=== PATIENT | female | born 1935 | race Caucasian/White ===

== ENCOUNTER 2017-02-03 20:46 | Inpatient (IN) | payer MEDICARE, BC ==
[2017-02-03] MEDS ORDERED: HYDROmorphone 0.5 MG/0.5 ML Syringe IM ONE (23:33)
--- NOTE | 2017-02-03 23:38 | EDM.PDOC ---
ED HPI GENERAL MEDICAL PROBLEM - General Chief Complaint: Lower Extremity Injury/Pain Stated Complaint: FELL IN PARKING LOT AT [employer] AND INJURED RT HIP Time Seen by Provider: 02/03/17 23:34 Source of Information: Reports: Patient, Family History Limitations: Reports: No Limitations - History of Present Illness INITIAL COMMENTS - FREE TEXT/NARRATIVE: pt arrived with pain in the rt hip and pelvis area after she fell in the [facility] parking lot. Onset: Today Duration: Hour(s): Location: Reports: Lower Extremity, Right Associated Symptoms: Reports: No Other Symptoms Right Leg Pain Score (Numeric/FACES): 9 - Related Data Allergies Allergy/AdvReac Type Severity Reaction Status Date / Time Penicillins Allergy Cannot Verified 02/03/17 23:27 Remember Home Meds: Home Meds ALPRAZolam [Alprazolam] 0.25 mg PO BID PRN 02/03/17 [History] Aspirin [Halfprin] 81 mg PO DAILY 02/03/17 [History] Calcium Carbonate/Vitamin D3 [Calcium 500 + Vit D 400] 1 each PO BID 02/03/17 [ History] Gabapentin [Gabapentin] 100 mg PO BID 02/03/17 [History] Losartan [Cozaar] 50 mg PO DAILY 02/03/17 [History] Pravastatin [Pravachol] 10 mg PO BEDTIME 02/03/17 [History] Triamcinolone Acetonide [Triamcinolone Acetonide 0.1% Crm] 1 applic TOP BID PRN 02/03/17 [History] Polyethylene Glycol 3350 [MiraLAX] 1 scoop PO DAILY 02/04/17 [History] Psyllium with Sucrose [Metamucil] 1 each PO DAILY 02/04/17 [History] Review of Systems - Review of Systems Review Of Systems: See Below Constitutional: Reports: No Symptoms Eyes: Reports: No Symptoms Ears: Reports: No Symptoms Nose: Reports: No Symptoms Mouth/Throat: Reports: No Symptoms Respiratory: Reports: No Symptoms Cardiovascular: Reports: No Symptoms GI/Abdominal: Reports: No Symptoms ED EXAM, GENERAL - Physical Exam Exam: See Below Free Text/Narrative:: pt lost her balance and fell in the parking lot of [facility]. She is having alot of hip pain and pain in the knee area. Exam Limited By: No Limitations General Appearance: Alert, Anxious Ears: Normal TMs Nose: Normal Inspection Throat/Mouth: Normal Inspection Head: Atraumatic Neck: Normal Inspection Respiratory/Chest: No Respiratory Distress Cardiovascular: Regular Rate, Rhythm GI/Abdominal: Soft, Non-Tender Extremities: Other (pain in the rt hip and rt femur. When the hip ismoved she has extreme pain. ) Neurological: Alert, Oriented, Normal Cognition Course - Vital Signs Last Recorded V/S: Last Vital Signs Temp 36.1 C 02/04/17 06:25 Pulse 72 02/04/17 06:25 Resp 16 02/04/17 06:25 BP 117/63 02/04/17 06:25 Pulse Ox 96 02/04/17 06:25 - Orders/Labs/Meds Orders: Active Orders 24 hr Category Date Time Status EKG Documentation Completion [RC] ASDIRECTED Care 02/04/17 03:26 Active Valles Catheter Insertion [Insert Urinary Catheter] [OM. Care 02/04/17 06:00 Ordered PC] Q24H Urinary Catheter Assessment [RC] ASDIRECTED Care 02/04/17 06:23 Active Chest 1V Frontal [CR] Stat Exams 02/04/17 03:25 Taken Femur Min 2V Rt [CR] Stat Exams 02/03/17 23:31 Taken Hip Min 2V or 3V w Pelvis Rt [CR] Stat Exams 02/03/17 23:29 Taken Hip wo Cont Rt [CT] Stat Exams 02/04/17 00:24 Taken Knee 3V Rt [CR] Stat Exams 02/03/17 23:32 Taken EKG 12 Lead [EK] Routine Ther 02/04/17 03:26 Ordered Labs: Laboratory Tests 02/04/17 02/04/17 02/04/17 Range/Units 03:30 03:30 04:05 WBC 13.1 H (4.5-11.0) K/uL RBC 4.71 (3.30-5.50) M/uL Hgb 15.1 H (12.0-15.0) g/dL Hct 44.7 (36.0-48.0) % MCV 95 (80-98) fL MCH 32 H (27-31) pg MCHC 34 (32-36) % Plt Count 179 (150-400) K/uL Neut % (Auto) 80 H (36-66) % Lymph % (Auto) 12 L (24-44) % [place] % (Auto) 7 H (2-6) % Eos % (Auto) 0 L (2-4) % Baso % (Auto) 1 (0-1) % Sodium 138 L (140-148) mmol/L Potassium 3.7 (3.6-5.2) mmol/L Chloride 103 (100-108) mmol/L Carbon Dioxide 25 (21-32) mmol/L Anion Gap 13.7 (5.0-14.0) mmol/L BUN 16 (7-18) mg/dL Creatinine 1.0 (0.6-1.0) mg/dL Est Cr Clr Drug Dosing 38.75 mL/min Estimated GFR (MDRD) 53 L (>60) Glucose 152 H (74-106) mg/dL Calcium 9.0 (8.5-10.1) mg/dL Total Bilirubin 0.5 (0.2-1.0) mg/dL AST 19 (15-37) U/L ALT 17 (12-78) U/L Alkaline Phosphatase 49 (46-116) U/L Total Protein 7.7 (6.4-8.2) g/dL Albumin 3.7 (3.4-5.0) g/dL Globulin 4.0 H (2.3-3.5) g/dL Albumin/Globulin Ratio 0.9 L (1.2-2.2) Urine Color Yellow Urine Appearance Clear Urine pH 9.0 H (4.5-8.0) Ur Specific [place] 1.020 (1.008-1.030) Urine Protein Negative (NEGATIVE) mg/dL Urine Glucose (UA) 50 H (NEGATIVE) mg/dL Urine Ketones 15 H (NEGATIVE) mg/dL Urine Occult Blood Large (NEGATIVE) Urine Nitrite Negative (NEGATIVE) Urine Bilirubin Negative (NEGATIVE) Urine Urobilinogen Normal (NORMAL) mg/dL Ur Leukocyte Esterase Negative (NEGATIVE) Urine RBC 0-5 (0-5) Urine WBC 0-5 (0-5) Ur Epithelial Cells Few Amorphous Sediment Not seen Urine Bacteria Few Urine Mucus Not seen Meds: Medications Discontinued Medications Generic Name Dose Route Start Last Admin Trade Name Freq PRN Reason Stop Dose Admin Hydromorphone HCl 0.5 mg 02/03/17 23:33 02/03/17 23:37 Dilaudid IM 02/03/17 23:34 0.5 mg ONETIME ONE Administration Ondansetron HCl 4 mg 02/04/17 03:22 02/04/17 03:25 Zofran IVPUSH 02/04/17 03:23 4 mg ONETIME ONE Administration Ondansetron HCl 4 mg 02/04/17 04:29 02/04/17 04:34 Zofran IVPUSH 02/04/17 04:30 4 mg ONETIME ONE Administration - Re-Assessments/Exams Free Text/Narrative Re-Assessment/Exam: 02/04/17 03:24 pt was fpond to have a definite fracture of the neck of the rt hip. There is very minimal displacement. She is not having very severe pain. Free Text/Narrative Re-Assessment/Exam: 02/04/17 06:49 Dr Oliva plans to do surgery on the pt at 11 thirty on Sunday. Departure - Departure Time of Disposition: 06:50 Disposition: Admitted As Inpatient 67 Condition: Fair Clinical Impression: Closed right hip fracture - Discharge Information Referrals: PCP,None [Primary Care Provider] - Forms: ED Department Discharge Care Plan Goals: admit to Dr angulo-- Dr Oliva plans o do surgery at 11 tghirty on Sunday. - My Orders Last 24 Hours: My Active Orders 02/03/17 23:29 Hip Min 2V or 3V w Pelvis Rt [CR] Stat 02/03/17 23:31 Femur Min 2V Rt [CR] Stat 02/03/17 23:32 Knee 3V Rt [CR] Stat 02/04/17 00:24 Hip wo Cont Rt [CT] Stat 02/04/17 03:25 Chest 1V Frontal [CR] Stat 02/04/17 03:26 EKG Documentation Completion [RC] ASDIRECTED EKG 12 Lead [EK] Routine 02/04/17 06:00 Valles Catheter Insertion [Insert Urinary Catheter] [OM.PC] Q24H 02/04/17 06:23 Urinary Catheter Assessment [RC] ASDIRECTED - Assessment/Plan Last 24 Hours: My Active Orders 02/03/17 23:29 Hip Min 2V or 3V w Pelvis Rt [CR] Stat 02/03/17 23:31 Femur Min 2V Rt [CR] Stat 02/03/17 23:32 Knee 3V Rt [CR] Stat 02/04/17 00:24 Hip wo Cont Rt [CT] Stat 02/04/17 03:25 Chest 1V Frontal [CR] Stat 02/04/17 03:26 EKG Documentation Completion [RC] ASDIRECTED EKG 12 Lead [EK] Routine 02/04/17 06:00 Valles Catheter Insertion [Insert Urinary Catheter] [OM.PC] Q24H 02/04/17 06:23 Urinary Catheter Assessment [RC] ASDIRECTED
[2017-02-04] MEDS ORDERED: Ondansetron 4 MG/2 ML SDV IVPUSH ONE ×2 (03:22→04:29)
--- NOTE | 2017-02-04 07:59 | PCM.HP ---
H&P History of Present Illness - General Date of Service: 02/04/17 Admit Problem/Dx: Admission Diagnosis/Problem Admission Diagnosis/Problem Fracture of neck of femur Source of Information: Patient, Provider, RN Notes Reviewed History Limitations: Reports: No Limitations - History of Present Illness Initial Comments - Free Text/Narative: Ms. Rogers is an 81-year-old woman who is admitted through the emergency department after experiencing a right hip fracture associated with the fall. She is up in our area visiting from [place] declined stay at a local resort for the next week. She did come out of the grocery store and was in the parking lot when she tripped and fell on her right side. She was brought into the emergency department and x-ray as well as CT scan documents a right hip fracture. SHe is otherwise relatively healthy and reports that she's been feeling well prior to the fall. 15 years ago was diagnosed with cardiomyopathy, she reports that that' s resolved and she remains very active with no significant symptoms of chest pain or shortness of breath. She has had previous surgeries with general anesthesia and denies any complications or family history of complications from general anesthetic. She has no previous history of deep vein thrombosis, pulmonary emboli, or bleeding abnormalities. Right Leg Pain Score (Numeric/FACES): 9 - Related Data Allergies/Adverse Reactions: Allergies Allergy/AdvReac Type Severity Reaction Status Date / Time Penicillins Allergy Cannot Verified 02/03/17 23:27 Remember Home Medications: Home Meds ALPRAZolam [Alprazolam] 0.25 mg PO BID PRN 02/03/17 [History] Aspirin [Halfprin] 81 mg PO DAILY 02/03/17 [History] Calcium Carbonate/Vitamin D3 [Calcium 500 + Vit D 400] 1 each PO BID 02/03/17 [ History] Gabapentin [Gabapentin] 100 mg PO BID 02/03/17 [History] Losartan [Cozaar] 50 mg PO DAILY 02/03/17 [History] Pravastatin [Pravachol] 10 mg PO BEDTIME 02/03/17 [History] Triamcinolone Acetonide [Triamcinolone Acetonide 0.1% Crm] 1 applic TOP BID PRN 02/03/17 [History] Polyethylene Glycol 3350 [MiraLAX] 1 scoop PO DAILY 02/04/17 [History] Psyllium with Sucrose [Metamucil] 1 each PO DAILY 02/04/17 [History] Past Medical History HEENT History: Reports: None Cardiovascular History: Reports: Cardiomyopathy, Hypertension Gastrointestinal History: Reports: None Genitourinary History: Reports: Other (See Below) Other Genitourinary History: pelvic floor disfunction Oncologic (Cancer) History: Reports: Other (See Below) Other Oncologic History: skin Dermatologic History: Reports: Other (See Below) Other Dermatologic History: rash on feet occ. - Infectious Disease History Infectious Disease History: Reports: Chicken Pox, Measles - Past Surgical History Head Surgeries/Procedures: Reports: None HEENT Surgical History: Reports: Tonsillectomy Cardiovascular Surgical History: Reports: None GI Surgical History: Reports: Appendectomy Female Surgical History: Reports: None Oncologic Surgical History: Reports: None Dermatological Surgical History: Reports: None Social & Family History - Family History Family Medical History: Noncontributory - Tobacco Use Smoking Status *Q: Never Smoker Second Hand Smoke Exposure: No - Caffeine Use Caffeine Use: Reports: Coffee H&P Review of Systems - Review of Systems: Review Of Systems: See Below General: Reports: No Symptoms HEENT: Reports: No Symptoms Pulmonary: Reports: No Symptoms Cardiovascular: Reports: No Symptoms Gastrointestinal: Reports: No Symptoms Genitourinary: Reports: No Symptoms Musculoskeletal: Reports: Leg Pain, Joint Pain Skin: Reports: No Symptoms Psychiatric: Reports: No Symptoms Neurological: Reports: No Symptoms Hematologic/Lymphatic: Reports: No Symptoms Immunologic: Reports: No Symptoms Exam - Exam Exam: See Below - Vital Signs Vital Signs: Last Vital Signs Temp 96.9 F 02/04/17 06:25 Pulse 79 02/04/17 07:23 Resp 15 02/04/17 07:23 BP 117/64 02/04/17 07:23 Pulse Ox 96 02/04/17 07:23 Weight: 140 lb - Exam Quality Assessment: Urinary Catheter, DVT Prophylaxis General: Alert, Oriented, Cooperative, Mild Distress HEENT: Conjunctiva Clear, Hearing Intact, Mucosa Moist & [place], Normal Nasal Septum, Posterior Pharynx Clear, Pupils Equal Neck: Supple, Trachea Midline, +2 Carotid Pulse wo Bruit Lungs: Clear to Auscultation, Normal Respiratory Effort Cardiovascular: Regular Rate, Regular Rhythm, Normal S1, Normal S2. No: Systolic Murmur, Diastolic Murmur GI/Abdominal Exam: Normal Bowel Sounds, Soft, Non-Tender, No Distention Extremities: Leg Pain. No: Pedal Edema Skin: Warm, Dry, Intact Neurological: Cranial Nerves Intact, Strength Equal Bilateral, Normal Speech, Normal Tone, Sensation Intact. No: Focal Deficit Neuro Extensive - Mental Status: Alert, Oriented x3, Normal Mood/Affect, Normal Cognition, Memory Intact - Patient Data Lab Results Last 24 hrs: Laboratory Results - last 24 hr 02/04/17 02/04/17 02/04/17 Range/Units 03:30 03:30 04:05 WBC 13.1 H (4.5-11.0) K/uL RBC 4.71 (3.30-5.50) M/uL Hgb 15.1 H (12.0-15.0) g/dL Hct 44.7 (36.0-48.0) % MCV 95 (80-98) fL MCH 32 H (27-31) pg MCHC 34 (32-36) % Plt Count 179 (150-400) K/uL Neut % (Auto) 80 H (36-66) % Lymph % (Auto) 12 L (24-44) % [place] % (Auto) 7 H (2-6) % Eos % (Auto) 0 L (2-4) % Baso % (Auto) 1 (0-1) % Sodium 138 L (140-148) mmol/L Potassium 3.7 (3.6-5.2) mmol/L Chloride 103 (100-108) mmol/L Carbon Dioxide 25 (21-32) mmol/L Anion Gap 13.7 (5.0-14.0) mmol/L BUN 16 (7-18) mg/dL Creatinine 1.0 (0.6-1.0) mg/dL Est Cr Clr Drug Dosing 38.75 mL/min Estimated GFR (MDRD) 53 L (>60) Glucose 152 H (74-106) mg/dL Calcium 9.0 (8.5-10.1) mg/dL Total Bilirubin 0.5 (0.2-1.0) mg/dL AST 19 (15-37) U/L ALT 17 (12-78) U/L Alkaline Phosphatase 49 (46-116) U/L Total Protein 7.7 (6.4-8.2) g/dL Albumin 3.7 (3.4-5.0) g/dL Globulin 4.0 H (2.3-3.5) g/dL Albumin/Globulin Ratio 0.9 L (1.2-2.2) Urine Color Yellow Urine Appearance Clear Urine pH 9.0 H (4.5-8.0) Ur Specific [place] 1.020 (1.008-1.030) Urine Protein Negative (NEGATIVE) mg/dL Urine Glucose (UA) 50 H (NEGATIVE) mg/dL Urine Ketones 15 H (NEGATIVE) mg/dL Urine Occult Blood Large (NEGATIVE) Urine Nitrite Negative (NEGATIVE) Urine Bilirubin Negative (NEGATIVE) Urine Urobilinogen Normal (NORMAL) mg/dL Ur Leukocyte Esterase Negative (NEGATIVE) Urine RBC 0-5 (0-5) Urine WBC 0-5 (0-5) Ur Epithelial Cells Few Amorphous Sediment Not seen Urine Bacteria Few Urine Mucus Not seen Result Diagrams: 02/04/17 03:30 02/04/17 03:30 *Q Meaningful Use (ADM) - VTE *Q VTE Criteria *Q: VTE Pharmacological Contraindications *Q: Patient Scheduled Surgery - VTE Risk Assess *Q Each Risk Factor Represents 1 Point: None Total Score 1 Point Risk Factors: 0 Each Risk Factor Represents 2 Points: None Total Score 2 Point Risk Factors: 0 Each Risk Factor Represents 3 Points: Age 75 Years or Greater Total Score 3 Point Risk Factors: 3 Each Risk Factor Represents 5 Points: Hip, Pelvis or Leg Fracture, Less than 1 month Total Score 5 Point Risk Factors: 5 Venous Thromboembolism Risk Factor Score *Q: 8 - Stroke *Q Stroke Criteria *Q: - AMI *Q AMI Criteria *Q: Problem List Initiated/Reviewed/Updated: Yes Orders Last 24hrs: Active Orders 24 hr Category Date Time Status Patient Status Manage Transfer [TRANSFER] Routine ADT 02/04/17 07:40 Ordered EKG Documentation Completion [RC] ASDIRECTED Care 02/04/17 03:26 Active Valles Catheter Insertion [Insert Urinary Catheter] [OM. Care 02/04/17 06:00 Ordered PC] Q24H Urinary Catheter Assessment [RC] ASDIRECTED Care 02/04/17 06:23 Active Chest 1V Frontal [CR] Stat Exams 02/04/17 03:25 Taken Femur Min 2V Rt [CR] Stat Exams 02/03/17 23:31 Taken Hip Min 2V or 3V w Pelvis Rt [CR] Stat Exams 02/03/17 23:29 Taken Hip wo Cont Rt [CT] Stat Exams 02/04/17 00:24 Taken Knee 3V Rt [CR] Stat Exams 02/03/17 23:32 Taken Resuscitation Status Routine Resus Stat 02/04/17 07:43 Ordered EKG 12 Lead [EK] Routine Ther 02/04/17 03:26 Ordered Assessment/Plan Comment:: ASSESSMENT AND PLAN RIGHT HIP FRACTURE-she was feeling well until she tripped and fell yesterday landing on her right side. X-ray and CT scan confirm fracture of the right hip. -Consult Dr. Myles Oliva when he is available tomorrow -Nothing by mouth after midnight -Cleared for surgery, low risk CHRONIC CONSTIPATION -Continue outpatient medical regimen HYPERTENSION -Continue outpatient medical therapy MAINTENANCE ISSUES -DVT prophylaxis; SCUDs, single dose of Lovenox now -GI prophylaxis; not indicated -Valles catheter; placed because of difficulty with movement pending surgery -Nutrition; regular diet, nothing by mouth after midnight -Nicotine dependence; not required CODE STATUS-FULL CODE ADMISSION STATUS-patient will be admitted to inpatient status, expect at least a 2 night hospital stay for evaluation and management of problems as outlined above. At the time of this admission I do not reasonably expected evaluation and management of this problem will require more than a 96 hour hospital stay. DISPOSITION-anticipate discharge to home after the hospital stay. PRIMARY CARE PROVIDER-patient receives primary care in [facility].
[2017-02-04] MEDS ORDERED: oxyCODONE 5 MG Tab PO PRN (08:43)
[2017-02-04] MEDS ORDERED: Naloxone 0.4 MG/ML SDV IVPUSH PRN (08:43)
[2017-02-04] MEDS ORDERED: Albuterol 0.083% 2.5 MG/3 ML Neb Soln NEB PRN (08:43)
[2017-02-04] MEDS ORDERED: Acetaminophen 325 MG Tab PO PRN (08:43)
[2017-02-04] MEDS ORDERED: Docusate Sodium 100 MG Cap PO PRN (08:43)
[2017-02-04] MEDS ORDERED: Sodium Chloride 0.9% 10 ML Syringe FLUSH PRN (08:43)
[2017-02-04] MEDS ORDERED: Ondansetron 4 MG/2 ML SDV IV PRN (08:43)
[2017-02-04] MEDS ORDERED: ALPRAZolam 0.25 MG Tab PO PRN (08:43)
[2017-02-04] MEDS ORDERED: fentaNYL/Normal Saline 600 MCG/30 ML PCA Vial IV PRN (08:43)
[2017-02-04] MEDS ORDERED: Magnesium Hydroxide 400 MG/5 ML Susp 30 ML Cup PO PRN (08:43)
[2017-02-04] MEDS: Lactated Ringers 1,000 ML IV SCH ×2 (09:58→18:08)
[2017-02-04] MEDS ORDERED: Enoxaparin 40 MG/0.4 ML Syringe SUBCUT ONE (10:00)
[2017-02-04] MEDS: Losartan 50 MG Tab PO SCH (10:05)
[2017-02-04] MEDS: Psyllium Husk Powder Sugar Free 3.4 GM Packet PO SCH (10:06)
[2017-02-04] MEDS: Aspirin 81 MG Tab.EC PO SCH (10:06)
[2017-02-04] MEDS: Gabapentin 100 MG Cap PO SCH ×2 (10:07→21:16)
[2017-02-04] MEDS: Polyethylene Glycol 3350 Powder 17 GM Packet PO SCH (10:07)
[2017-02-04] MEDS: Pravastatin 20 MG Tab PO SCH (21:16)
[2017-02-05] MEDS: Lactated Ringers 1,000 ML IV SCH ×3 (02:27→20:38)
--- NOTE | 2017-02-05 09:42 | CR ---
Single view of the mid shaft and distal femur. It is intact.
[2017-02-05] MEDS: Aspirin 81 MG Tab.EC PO SCH (09:53)
[2017-02-05] MEDS: Losartan 50 MG Tab PO SCH (09:53)
[2017-02-05] MEDS: Polyethylene Glycol 3350 Powder 17 GM Packet PO SCH (09:53)
[2017-02-05] MEDS: Psyllium Husk Powder Sugar Free 3.4 GM Packet PO SCH (09:53)
[2017-02-05] MEDS: Gabapentin 100 MG Cap PO SCH ×2 (09:54→20:50)
--- NOTE | 2017-02-05 10:14 | PCM.PN ---
- General Info Date of Service: 02/05/17 Functional Status: Reports: Pain Controlled - Review of Systems Musculoskeletal: Reports: Leg Pain Systems Review Comment:: No acute events overnight. Pain has been well controlled as long as she doesn't move. No complaints of shortness of breath or abdominal pain. She has not had any fevers. Surgery planned for later in the morning. - Patient Data Vitals - Most Recent: Last Vital Signs Temp 36.7 C 02/05/17 08:02 Pulse 66 02/05/17 08:02 Resp 18 02/05/17 08:02 BP 117/77 02/05/17 08:02 Pulse Ox 92 L 02/05/17 08:02 Weight - Most Recent: 64.864 kg I&O - Last 24 Hours: Intake & Output 02/04/17 02/05/17 02/05/17 22:59 06:59 14:59 Intake Total 1152 1581 Output Total 1000 2500 500 Balance 152 -919 -500 Lab Results Last 24 Hours: Laboratory Results - last 24 hr 02/05/17 02/05/17 Range/Units 04:37 04:37 WBC 8.7 (4.5-11.0) K/uL RBC 4.30 (3.30-5.50) M/uL Hgb 13.8 (12.0-15.0) g/dL Hct 41.5 (36.0-48.0) % MCV 97 (80-98) fL MCH 32 H (27-31) pg MCHC 33 (32-36) % Plt Count 164 (150-400) K/uL Neut % (Auto) 63 (36-66) % Lymph % (Auto) 26 (24-44) % [place] % (Auto) 9 H (2-6) % Eos % (Auto) 2 (2-4) % Baso % (Auto) 1 (0-1) % Sodium 139 L (140-148) mmol/L Potassium 4.0 (3.6-5.2) mmol/L Chloride 107 (100-108) mmol/L Carbon Dioxide 28 (21-32) mmol/L Anion Gap 8.0 (5.0-14.0) mmol/L BUN 11 (7-18) mg/dL Creatinine 0.9 (0.6-1.0) mg/dL Est Cr Clr Drug Dosing 43.05 mL/min Estimated GFR (MDRD) > 60 (>60) Glucose 99 (74-106) mg/dL Calcium 8.5 (8.5-10.1) mg/dL Med Orders - Current: Current Medications Acetaminophen (Tylenol) 650 mg PO Q4H PRN PRN Reason: Pain (Mild 1-3)/fever Last Admin: 02/04/17 09:26 Dose: 650 mg Albuterol (Proventil Neb Soln) 2.5 mg NEB Q4H PRN PRN Reason: Shortness Of Breath/wheezing Alprazolam (Xanax) 0.25 mg PO BID PRN PRN Reason: Anxiety Aspirin (Halfprin) 81 mg PO DAILY [facility] Last Admin: 02/05/17 09:53 Dose: Not Given Docusate Sodium (Colace) 100 mg PO BID PRN PRN Reason: Constipation Fentanyl Citrate (Fentanyl In Ns 20 Mcg/Ml 30 Ml [employer]) 0 mcg IV ASDIRECTED PRN; Protocol PRN Reason: Pain Last Admin: 02/04/17 09:27 Dose: 600 mcg Gabapentin (Neurontin) 100 mg PO BID [facility] Last Admin: 02/05/17 09:54 Dose: Not Given Lactated Ringer's (Ringers, Lactated) 1,000 mls @ 125 mls/hr IV ASDIRECTED [facility] Last Admin: 02/05/17 09:55 Dose: 125 mls/hr Clindamycin Phosphate 900 mg/ (Sodium Chloride) 106 mls @ 200 mls/hr IV ONCALL ONE Stop: 02/05/17 11:31 Losartan Potassium (Cozaar) 50 mg PO DAILY [facility] Last Admin: 02/05/17 09:53 Dose: Not Given Magnesium Hydroxide (Milk Of Magnesia) 30 ml PO Q12H PRN PRN Reason: Constipation Naloxone HCl (Narcan) 0.4 mg IVPUSH Q2M PRN PRN Reason: Respiratory Distress Ondansetron HCl (Zofran) 4 mg IV Q4H PRN PRN Reason: Nausea/Vomiting Last Admin: 02/04/17 09:26 Dose: 4 mg Oxycodone HCl (Oxycodone) 5 mg PO Q4H PRN PRN Reason: Pain (moderate 4-6) Polyethylene Glycol (Miralax) 17 gm PO DAILY [facility] Last Admin: 02/05/17 09:53 Dose: Not Given Pravastatin Sodium (Pravachol) 10 mg PO BEDTIME [facility] Last Admin: 02/04/17 21:16 Dose: 10 mg Psyllium Husk (Metamucil Sugar Free) 1 packet PO DAILY [facility] Last Admin: 02/05/17 09:53 Dose: Not Given Sodium Chloride (Saline Flush) 10 ml FLUSH ASDIRECTED PRN PRN Reason: Keep Vein Open Discontinued Medications Enoxaparin Sodium (Lovenox) 40 mg SUBCUT ONETIME ONE Stop: 02/04/17 10:01 Last Admin: 02/04/17 10:07 Dose: 40 mg Hydromorphone HCl (Dilaudid) 0.5 mg IM ONETIME ONE Stop: 02/03/17 23:34 Last Admin: 02/03/17 23:37 Dose: 0.5 mg Ondansetron HCl (Zofran) 4 mg IVPUSH ONETIME ONE Stop: 02/04/17 03:23 Last Admin: 02/04/17 03:25 Dose: 4 mg Ondansetron HCl (Zofran) 4 mg IVPUSH ONETIME ONE Stop: 02/04/17 04:30 Last Admin: 02/04/17 04:34 Dose: 4 mg - Exam Quality Assessment: No: Supplemental Oxygen General: Alert, Oriented, Cooperative, No Acute Distress Neck: Supple Lungs: Clear to Auscultation, Normal Respiratory Effort Cardiovascular: Regular Rate, Regular Rhythm, No Murmurs GI/Abdominal Exam: Soft, No Distention Extremities: No Pedal Edema, Other (no bruising of the right hip ) Skin: Warm, Dry Psy/Mental Status: Alert, Normal Affect - Problem List Review Problem List Initiated/Reviewed/Updated: Yes - My Orders Last 24 Hours: My Active Orders 02/06/17 05:00 BASIC METABOLIC PANEL,BMP [CHEM] Timed HGB [HEMOGLOBIN] [HEME] Timed - Plan Plan:: ASSESSMENT AND PLAN RIGHT HIP FRACTURE - fracture secondary to accidental injury. Surgical intervention planned today. -Surgical intervention as planned today -Nothing by mouth until after surgery -Physical therapy postoperatively CHRONIC CONSTIPATION - will need to be extra careful to avoid additional troubles with constipation with narcotics used in the postoperative setting. -Continue outpatient medical regimen HYPERTENSION - blood pressures have been acceptable. -Continue outpatient medical therapy MAINTENANCE ISSUES -DVT prophylaxis; SCUDs -GI prophylaxis; not indicated -Valles catheter; placed because of difficulty with movement pending surgery -Nutrition; regular diet, nothing by mouth after midnight DISPOSITION - anticipate discharge to home after the hospital stay. Killian Shearer M.D.
[2017-02-05] MEDS ORDERED: Gentamicin 40 MG/ML 2 ML Vial ONE ×3 (10:30→13:00)
[2017-02-05] MEDS ORDERED: Clindamycin Phosphate 900 MG in Sodium Chloride 0.9% 100 ML IV ONE (11:00)
[2017-02-05] MEDS ORDERED: Propofol 200 MG/20 ML SDV ONE (11:25)
[2017-02-05] MEDS ORDERED: Midazolam 1 MG/ML 2 ML SDV ONE (11:26)
[2017-02-05] MEDS ORDERED: fentaNYL 100 MCG/2 ML SDV ONE (11:26)
--- NOTE | 2017-02-05 11:40 | CR ---
Heart size within normal limits. Interstitial thickening may be chronic. No focal consolidation.
--- NOTE | 2017-02-05 12:01 | CR ---
Impacted right femoral neck fracture.
[2017-02-05] MEDS ORDERED: ePHEDrine 50 MG/ML SDV ONE (12:02)
[2017-02-05] MEDS ORDERED: Bupivacaine 0.5%/EPINEPHrine 1:200,000 50 ML MDV INJECT ONE ×2 (12:38)
[2017-02-05] MEDS ORDERED: Povidone-Iodine 10% Soln 118.25 ML Bottle TOP ONE (12:38)
[2017-02-05] MEDS ORDERED: Lactated Ringers 1,000 ML ONE (12:46)
[2017-02-05] MEDS ORDERED: Bupivacaine 0.5%/EPINEPHrine 1:200,000 50 ML MDV ONE (13:00)
[2017-02-05] MEDS ORDERED: Povidone-Iodine 10% Soln 118.25 ML Bottle ONE (13:00)
[2017-02-05] MEDS ORDERED: Sennosides 8.6 MG Tab PO PRN (13:26)
[2017-02-05] MEDS ORDERED: Docusate Sodium 100 MG Cap PO PRN (13:26)
[2017-02-05] MEDS ORDERED: diphenhydrAMINE 50 MG/ML SDV IVPUSH PRN (13:26)
[2017-02-05] MEDS ORDERED: Aluminum Hydroxide/Magnesium Hydroxide/Simethicone Susp 30 ML Cup PO PRN (13:26)
[2017-02-05] MEDS ORDERED: traMADol 50 MG Tab PO PRN (13:26)
[2017-02-05] MEDS ORDERED: Zolpidem 5 MG Tab PO PRN (13:26)
[2017-02-05] MEDS ORDERED: Bisacodyl 5 MG Tab PO PRN (13:26)
[2017-02-05] MEDS ORDERED: Magnesium Hydroxide 400 MG/5 ML Susp 30 ML Cup PO PRN (13:26)
[2017-02-05] MEDS ORDERED: Morphine 2 MG/ML Syringe IVPUSH PRN (13:26)
[2017-02-05] MEDS ORDERED: Ketorolac 30 MG/ML SDV IVPUSH PRN (13:26)
--- NOTE | 2017-02-05 13:59 | CR ---
Impacted right femoral neck fracture. The pelvis appears intact.
[2017-02-05] MEDS: Acetaminophen/oxyCODONE 325-5 MG Tab PO PRN ×2 (15:19→20:51)
[2017-02-05] MEDS: Aspirin 325 MG Tab.EC PO SCH (20:50)
[2017-02-05] MEDS: Pravastatin 20 MG Tab PO SCH (20:50)
--- NOTE | 2017-02-05 20:55 | PCM.CONS ---
H&P History of Present Illness - General Date of Service: 02/05/17 Admit Problem/Dx: Admission Diagnosis/Problem Admission Diagnosis/Problem Fracture of neck of femur - History of Present Illness Onset of Symptoms: Reports: Sudden Duration of Symptoms: Reports: Hour(s): Location: Reports: Lower Extremity, Right Quality: Reports: Stabbing, Throbbing Improves with: Reports: None Worsens with: Reports: Movement Associated Symptoms: Reports: No Other Symptoms Right Leg Pain Score (Numeric/FACES): 4 - Related Data Allergies/Adverse Reactions: Allergies Allergy/AdvReac Type Severity Reaction Status Date / Time Penicillins Allergy Cannot Verified 02/03/17 23:27 Remember Home Medications: Home Meds ALPRAZolam [Alprazolam] 0.25 mg PO BID PRN 02/03/17 [History] Aspirin [Halfprin] 81 mg PO DAILY 02/03/17 [History] Calcium Carbonate/Vitamin D3 [Calcium 500 + Vit D 400] 1 each PO BID 02/03/17 [ History] Gabapentin [Gabapentin] 100 mg PO BID 02/03/17 [History] Losartan [Cozaar] 50 mg PO DAILY 02/03/17 [History] Pravastatin [Pravachol] 10 mg PO BEDTIME 02/03/17 [History] Triamcinolone Acetonide [Triamcinolone Acetonide 0.1% Crm] 1 applic TOP BID PRN 02/03/17 [History] Polyethylene Glycol 3350 [MiraLAX] 1 scoop PO DAILY 02/04/17 [History] Psyllium with Sucrose [Metamucil] 1 each PO DAILY 02/04/17 [History] Past Medical History HEENT History: Reports: None Cardiovascular History: Reports: Cardiomyopathy, Hypertension Gastrointestinal History: Reports: None Genitourinary History: Reports: Other (See Below) Other Genitourinary History: pelvic floor disfunction Oncologic (Cancer) History: Reports: Other (See Below) Other Oncologic History: skin Dermatologic History: Reports: Other (See Below) Other Dermatologic History: rash on feet occ. - Infectious Disease History Infectious Disease History: Reports: Chicken Pox, Measles - Past Surgical History Head Surgeries/Procedures: Reports: None HEENT Surgical History: Reports: Tonsillectomy Cardiovascular Surgical History: Reports: None GI Surgical History: Reports: Appendectomy Female Surgical History: Reports: None Oncologic Surgical History: Reports: None Dermatological Surgical History: Reports: None Social & Family History - Family History Family Medical History: Noncontributory - Tobacco Use Smoking Status *Q: Never Smoker Second Hand Smoke Exposure: No - Caffeine Use Caffeine Use: Reports: Coffee H&P Review of Systems - Review of Systems: Review Of Systems: See Below General: Reports: No Symptoms HEENT: Reports: No Symptoms Pulmonary: Reports: No Symptoms Cardiovascular: Reports: No Symptoms Gastrointestinal: Reports: No Symptoms Genitourinary: Reports: No Symptoms Musculoskeletal: Reports: Leg Pain, Joint Pain Skin: Reports: No Symptoms Psychiatric: Reports: No Symptoms Neurological: Reports: No Symptoms Hematologic/Lymphatic: Reports: No Symptoms Immunologic: Reports: No Symptoms Exam - Exam Exam: See Below - Vital Signs Vital Signs: Last Vital Signs Temp 98.2 F 02/05/17 20:04 Pulse 79 02/05/17 20:04 Resp 16 02/05/17 20:04 BP 106/69 02/05/17 20:04 Pulse Ox 93 L 02/05/17 20:04 Weight: 143 lb - Exam General: Alert, Oriented, 4 HEENT: PERRLA, Conjunctiva Clear Neck: Supple, Trachea Midline Extremities: Leg Pain Peripheral Pulses: 2+: Dorsalis Pedis (R) Skin: Warm, Intact Psychiatric: Alert, Normal Affect Physical Exam Comments:: rle: distal motor and sensory exam grossly intact. pain in r groin. small bruising right thigh - Patient Data Lab Results Last 24 hrs: Laboratory Results - last 24 hr 02/05/17 02/05/17 Range/Units 04:37 04:37 WBC 8.7 (4.5-11.0) K/uL RBC 4.30 (3.30-5.50) M/uL Hgb 13.8 (12.0-15.0) g/dL Hct 41.5 (36.0-48.0) % MCV 97 (80-98) fL MCH 32 H (27-31) pg MCHC 33 (32-36) % Plt Count 164 (150-400) K/uL Neut % (Auto) 63 (36-66) % Lymph % (Auto) 26 (24-44) % Dixon % (Auto) 9 H (2-6) % Eos % (Auto) 2 (2-4) % Baso % (Auto) 1 (0-1) % Sodium 139 L (140-148) mmol/L Potassium 4.0 (3.6-5.2) mmol/L Chloride 107 (100-108) mmol/L Carbon Dioxide 28 (21-32) mmol/L Anion Gap 8.0 (5.0-14.0) mmol/L BUN 11 (7-18) mg/dL Creatinine 0.9 (0.6-1.0) mg/dL Est Cr Clr Drug Dosing 43.05 mL/min Estimated GFR (MDRD) > 60 (>60) Glucose 99 (74-106) mg/dL Calcium 8.5 (8.5-10.1) mg/dL Result Diagrams: 02/05/17 04:37 02/05/17 04:37 Consult PN Assessment/Plan (1) Closed right hip fracture SNOMED Code(s): 474824069 Code(s): S72.001A - FRACTURE OF UNSP PART OF NECK OF RIGHT FEMUR, INIT Current Visit: Yes Qualifiers: Encounter type: initial encounter Qualified Code(s): S72.001A - Fracture of unspecified part of neck of right femur, initial encounter for closed fracture Problem List Initiated/Reviewed/Updated: Yes My Orders Last 24 Hours: My Active Orders 02/05/17 10:28 Pelvis 1V or 2V [CR] Routine Plan: a: r subcapital femoral neck fx closed P: to or today for r hip hemiarthroplasty Requesting Provider: adele Patient History Reviewed: Yes Admission H&P Reviewed: Yes Notified Requestor: Yes
--- NOTE | 2017-02-05 21:23 | OR ---
DATE OF PROCEDURE: 02/05/2017 PREOPERATIVE DIAGNOSIS: Right subcapital femoral neck fracture. POSTOPERATIVE DIAGNOSIS: Right subcapital femoral neck fracture. PROCEDURE: Right hip hemiarthroplasty. CHORE WORKER: KARLA Sellers. ANESTHESIA: Spinal anesthesia plus conscious sedation. FLUID: Lactated Ringer solution. ESTIMATED BLOOD LOSS: 300 mL. COMPLICATIONS: None. SPECIMEN: None. DISCHARGE DISPOSITION: Stable to PACU. INSTRUMENTATION: Jesusita bipolar. INDICATIONS: The patient was up visiting her family at the [facility]. She had fallen sustaining the above-mentioned fracture. She was seen in the emergency department, preoperative imaging confirmed the above-mentioned diagnosis. She was admitted to the hospitalist service. Risks and benefits of the procedure were explained to the patient. Informed consent was obtained. DETAILS OF PROCEDURE: The patient was seen preoperatively in the morning where I had her sign the consent. Right lower extremity was marked. She was brought to the operative suite by Anesthesia staff where spinal anesthesia with conscious sedation was administered. She was placed into a left lateral coma position on a PEG board for positioning and all extremities were found to be well padded. An axillary roll was used. The right lower extremity was then prepped and draped in a sterile manner. Time-out was called identifying the correct patient, the correct procedure, the correct site, and the antibiotics had begun with appropriate period of time. The incision was marked extending approximately 5 cm proximal to the greater trochanter and then down to the level of the lesser trochanter. Bleeding was controlled with Bovie electrocautery. The incision was made down to the deep fascia. Gelpi's were used for retraction and I used a Ray-Kirill to clear the fat off the deep fascia. I then made an incision through the deep fascia with a blade and then freed up the fascia over the gluteal muscles. I then inserted the Charnley retractor and at that point, I then used Bovie electrocautery to go down and open the capsule from the lesser trochanter. Then anteriorly around the capsule, we had some tissue to flap back and then up to the level of the greater trochanter. We then externally rotated the hip and then I made two saw cuts that ended approximately one fingerbreadth above the lesser trochanter. I then used a corkscrew to remove the femoral head and remainder of the neck. I removed some extra bony fragments after this had been accomplished. I then used a box stapler and then the canal finder, and then broached sequentially up to a 12. We then trialed with a -3 and ended up with a 0 for a good fit. We then removed all of our components. We then copiously irrigated with saline and then inserted our final components. Please see the list available in the record for the components. We then reduced the hip and then copiously irrigated with saline again and then closed the capsule and gluteal muscles with two #5 Ethibonds. I then irrigated it again and then closed the deep fascia with a #2 Vicryl in a running manner followed by 0 subcutaneous sutures, then 2-0 subcutaneous sutures, then skin jan followed by sterile dressing. The patient was then flipped onto her hospital bed and then taken to the PACU in a stable condition. Vignesh Oliva DO /[id number]
[2017-02-05] MEDS: Ondansetron 4 MG/2 ML SDV IVPUSH PRN (22:17)
[2017-02-06] MEDS: Acetaminophen/oxyCODONE 325-5 MG Tab PO PRN ×2 (02:46→06:29)
[2017-02-06] MEDS: Lactated Ringers 1,000 ML IV SCH ×2 (03:46→12:09)
--- NOTE | 2017-02-06 09:03 | CR ---
Status post right TOPHER. Negative for post surgical purposes.
[2017-02-06] MEDS: Gabapentin 100 MG Cap PO SCH ×2 (09:27→20:54)
[2017-02-06] MEDS: Aspirin 325 MG Tab.EC PO SCH ×2 (09:27→20:54)
[2017-02-06] MEDS: Psyllium Husk Powder Sugar Free 3.4 GM Packet PO SCH (09:28)
[2017-02-06] MEDS ORDERED: Acetaminophen/oxyCODONE 325-5 MG Tab PO PRN (10:54)
--- NOTE | 2017-02-06 10:57 | PCM.PN ---
- General Info Date of Service: 02/06/17 Functional Status: Reports: Pain Controlled - Review of Systems General: Reports: Weakness Neurological: Reports: Confusion (lethargic) Systems Review Comment:: no acute events overnight. Urine output has been acceptable. She has been more somnolent this morning than noted previously. She also reported bilateral decreased hearing this morning shortly after she received 2 Percocet. She reports no pain at this time though falls asleep very quickly. She does not report feeling short of breath. She did have some nausea earlier in the morning. - Patient Data Vitals - Most Recent: Last Vital Signs Temp 36.3 C 02/06/17 10:53 Pulse 75 02/06/17 10:53 Resp 16 02/06/17 06:56 BP 108/68 02/06/17 10:53 Pulse Ox 97 02/06/17 10:53 Weight - Most Recent: 64.864 kg I&O - Last 24 Hours: Intake & Output 02/05/17 02/06/17 02/06/17 22:59 06:59 14:59 Intake Total 816 1460 Output Total 650 250 Balance 166 1210 Lab Results Last 24 Hours: Laboratory Results - last 24 hr 02/06/17 02/06/17 Range/Units 05:15 05:15 WBC 9.6 (4.5-11.0) K/uL RBC 3.39 (3.30-5.50) M/uL Hgb 10.7 L D (12.0-15.0) g/dL Hct 33.2 L (36.0-48.0) % MCV 98 (80-98) fL MCH 32 H (27-31) pg MCHC 32 (32-36) % Plt Count 134 L (150-400) K/uL Neut % (Auto) 78 H (36-66) % Lymph % (Auto) 13 L (24-44) % Carter % (Auto) 9 H (2-6) % Eos % (Auto) 0 L (2-4) % Baso % (Auto) 0 (0-1) % Sodium 135 L (140-148) mmol/L Potassium 4.3 (3.6-5.2) mmol/L Chloride 105 (100-108) mmol/L Carbon Dioxide 26 (21-32) mmol/L Anion Gap 8.3 (5.0-14.0) mmol/L BUN 11 (7-18) mg/dL Creatinine 1.0 (0.6-1.0) mg/dL Est Cr Clr Drug Dosing 38.75 mL/min Estimated GFR (MDRD) 53 L (>60) Glucose 150 H (74-106) mg/dL Calcium 7.7 L (8.5-10.1) mg/dL Total Bilirubin 0.6 (0.2-1.0) mg/dL AST 23 (15-37) U/L ALT 14 (12-78) U/L Alkaline Phosphatase 36 L (46-116) U/L Total Protein 5.3 L (6.4-8.2) g/dL Albumin 2.3 L (3.4-5.0) g/dL Globulin 3.0 (2.3-3.5) g/dL Albumin/Globulin Ratio 0.8 L (1.2-2.2) Med Orders - Current: Current Medications Al Hydroxide/Mg Hydroxide (Mag-Al Plus) 30 ml PO Q4H PRN PRN Reason: Constipation Albuterol (Proventil Neb Soln) 2.5 mg NEB Q4H PRN PRN Reason: Shortness Of Breath/wheezing Aspirin (Ecotrin) 325 mg PO BID [facility] Last Admin: 02/06/17 09:27 Dose: 325 mg Bisacodyl (Dulcolax) 10 mg PO DAILY PRN PRN Reason: Constipation Last Admin: 02/06/17 06:29 Dose: 10 mg Diazepam (Valium) 5 mg IVPUSH Q6H PRN PRN Reason: Spasms Diphenhydramine HCl (Benadryl) 25 mg IVPUSH Q4H PRN PRN Reason: Itching Last Admin: 02/06/17 09:55 Dose: 25 mg Docusate Sodium (Colace) 100 mg PO BID PRN PRN Reason: Constipation Gabapentin (Neurontin) 100 mg PO BID [facility] Last Admin: 02/06/17 09:27 Dose: 100 mg Lactated Ringer's (Ringers, Lactated) 1,000 mls @ 125 mls/hr IV ASDIRECTED [facility] Last Admin: 02/06/17 03:46 Dose: 125 mls/hr Ketorolac Tromethamine (Toradol) 15 mg IVPUSH Q8H PRN PRN Reason: Pain Stop: 08/05/17 13:26 Last Admin: 02/05/17 15:18 Dose: 15 mg Losartan Potassium (Cozaar) 50 mg PO DAILY [facility] Last Admin: 02/05/17 09:53 Dose: Not Given Magnesium Hydroxide (Milk Of Magnesia) 30 ml PO Q12H PRN PRN Reason: Constipation Morphine Sulfate (Morphine) 2 mg IVPUSH Q2H PRN PRN Reason: Pain Last Admin: 02/05/17 14:51 Dose: 2 mg Ondansetron HCl (Zofran) 8 mg IVPUSH Q4H PRN PRN Reason: Nausea/Vomiting Last Admin: 02/05/17 22:17 Dose: 8 mg Polyethylene Glycol (Miralax) 51 gm PO DAILY [facility] Pravastatin Sodium (Pravachol) 10 mg PO BEDTIME [facility] Last Admin: 02/05/17 20:50 Dose: 10 mg Psyllium Husk (Metamucil Sugar Free) 1 packet PO DAILY [facility] Last Admin: 02/06/17 09:28 Dose: 1 packet Senna/Docusate Sodium (Senna Plus) 1 tab PO BID [facility] Sodium Chloride (Saline Flush) 10 ml FLUSH ASDIRECTED PRN PRN Reason: Keep Vein Open Discontinued Medications Acetaminophen (Tylenol) 650 mg PO Q4H PRN PRN Reason: Pain (Mild 1-3)/fever Last Admin: 02/04/17 09:26 Dose: 650 mg Alprazolam (Xanax) 0.25 mg PO BID PRN PRN Reason: Anxiety Aspirin (Halfprin) 81 mg PO DAILY [facility] Last Admin: 02/05/17 09:53 Dose: Not Given Bupivacaine HCl/Epinephrine Bitart (Marcaine 0.5%/Epinephrine 1:200,000) Confirm Administered Dose 50 ml .ROUTE .STK-MED ONE Stop: 02/05/17 13:01 Bupivacaine HCl/Epinephrine Bitart (Marcaine 0.5%/Epinephrine 1:200,000) 30 ml INJECT .STK-MED ONE Stop: 02/05/17 12:39 Last Admin: 02/05/17 12:38 Dose: 30 ml Enoxaparin Sodium (Lovenox) 40 mg SUBCUT ONETIME ONE Stop: 02/04/17 10:01 Last Admin: 02/04/17 10:07 Dose: 40 mg Ephedrine Sulfate (Ephedrine Sulfate) Confirm Administered Dose 50 mg .ROUTE .STK-MED ONE Stop: 02/05/17 12:03 Fentanyl (Sublimaze) Confirm Administered Dose 100 mcg .ROUTE .STK-MED ONE Stop: 02/05/17 11:27 Fentanyl Citrate (Fentanyl In Ns 20 Mcg/Ml 30 Ml Agricultural Equipment Test Engineer) 0 mcg IV ASDIRECTED PRN; Protocol PRN Reason: Pain Last Admin: 02/04/17 09:27 Dose: 600 mcg Gentamicin Sulfate (Gentamicin) Confirm Administered Dose 240 mg .ROUTE .STK- MED ONE Stop: 02/05/17 13:01 Hydromorphone HCl (Dilaudid) 0.5 mg IM ONETIME ONE Stop: 02/03/17 23:34 Last Admin: 02/03/17 23:37 Dose: 0.5 mg Clindamycin Phosphate 900 mg/ (Sodium Chloride) 106 mls @ 200 mls/hr IV ONCALL ONE Stop: 02/05/17 11:31 Last Admin: 02/05/17 11:18 Dose: 200 mls/hr Lactated Ringer's (Ringers, Lactated) Confirm Administered Dose 1,000 mls @ as directed .ROUTE .STK-MED ONE Stop: 02/05/17 12:47 Midazolam HCl (Versed 1 Mg/Ml) Confirm Administered Dose 2 mg .ROUTE .STK-MED ONE Stop: 02/05/17 11:27 Naloxone HCl (Narcan) 0.4 mg IVPUSH Q2M PRN PRN Reason: Respiratory Distress Ondansetron HCl (Zofran) 4 mg IVPUSH ONETIME ONE Stop: 02/04/17 03:23 Last Admin: 02/04/17 03:25 Dose: 4 mg Ondansetron HCl (Zofran) 4 mg IVPUSH ONETIME ONE Stop: 02/04/17 04:30 Last Admin: 02/04/17 04:34 Dose: 4 mg Ondansetron HCl (Zofran) 4 mg IV Q4H PRN PRN Reason: Nausea/Vomiting Last Admin: 02/04/17 09:26 Dose: 4 mg Oxycodone HCl (Oxycodone) 5 mg PO Q4H PRN PRN Reason: Pain (moderate 4-6) Oxycodone/Acetaminophen (Percocet 325-5 Mg) 2 tab PO Q4H PRN PRN Reason: Pain Last Admin: 02/06/17 06:29 Dose: 2 tab Polyethylene Glycol (Miralax) 17 gm PO DAILY [facility] Last Admin: 02/05/17 09:53 Dose: Not Given Povidone Iodine (Betadine 10% Soln) 1 ml TOP .STK-MED ONE Stop: 02/05/17 12:39 Last Admin: 02/05/17 12:38 Dose: 1 ml Povidone Iodine (Betadine 10% Soln) Confirm Administered Dose 1 ml .ROUTE .STK- MED ONE Stop: 02/05/17 13:01 Propofol (Diprivan 20 Ml) Confirm Administered Dose 200 mg .ROUTE .STK-MED ONE Stop: 02/05/17 11:26 Senna/Docusate Sodium (Senna Plus) 1 tab PO BID PRN PRN Reason: Constipation Last Admin: 02/05/17 20:50 Dose: 1 tab Tramadol HCl (Ultram) 100 mg PO Q6H PRN PRN Reason: Pain Zolpidem Tartrate (Ambien) 5 mg PO BEDTIME PRN PRN Reason: Sleep - Exam Quality Assessment: Supplemental Oxygen General: Cooperative, No Acute Distress, Sedated HEENT: Pupils Equal (pin point), Other (left ear clear, right with moderate non- obstructing cerumen) Neck: Supple Lungs: Clear to Auscultation, Normal Respiratory Effort Cardiovascular: Regular Rate, Regular Rhythm GI/Abdominal Exam: Soft, No Distention Extremities: Normal Inspection, No Pedal Edema Skin: Warm, Dry Wound/Incisions: Dressing Dry and Intact Psy/Mental Status: Alert, Normal Affect - Problem List Review Problem List Initiated/Reviewed/Updated: Yes - My Orders Last 24 Hours: My Active Orders 02/06/17 09:03 Docusate Sodium/Sennosides [Senna Plus] 1 tab PO BID 02/06/17 09:15 Polyethylene Glycol 3350 [MiraLAX] 51 gm PO DAILY 02/06/17 10:54 Acetaminophen/oxyCODONE [Percocet 325-5 MG] 1 tab PO Q4H PRN 02/06/17 10:55 traMADol [Ultram] 50 mg PO Q6H PRN 02/07/17 05:00 BASIC METABOLIC PANEL,BMP [CHEM] Timed CBC W/O DIFF,HEMOGRAM [HEME] Timed (1) - Plan Plan:: ASSESSMENT AND PLAN RIGHT HIP FRACTURE - fracture secondary to accidental injury. Surgical intervention with hemiarthroplasty completed . -postop cares per surgical team -Physical therapy postoperatively CHRONIC CONSTIPATION - will need to be extra careful to avoid additional troubles with constipation with narcotics used in the postoperative setting. -Continue outpatient medical regimen HYPERTENSION - blood pressures have been on the low side and medications will be held today. -Continue outpatient medical therapy MAINTENANCE ISSUES -DVT prophylaxis; SCUDs and twice daily aspirin -GI prophylaxis; not indicated -Valles catheter; placed because of difficulty with movement pending surgery, plan to remove later in the day -Nutrition; regular diet DISPOSITION - anticipate discharge to senior care after the hospital stay. Killian Shearer M.D.
[2017-02-06] MEDS: Polyethylene Glycol 3350 Powder 17 GM Packet PO SCH ×2 (12:09→12:10)
[2017-02-06] MEDS: Pravastatin 20 MG Tab PO SCH (20:54)
[2017-02-07] MEDS: traMADol 50 MG Tab PO PRN ×3 (02:07→16:27)
[2017-02-07] MEDS ORDERED: Diltiazem IR 30 MG Tab PO ONE (04:38)
[2017-02-07] MEDS ORDERED: Furosemide 20 MG/2 ML VIAL IVPUSH ONE (04:38)
[2017-02-07] MEDS ORDERED: Diltiazem IR 30 MG Tab ONE (04:45)
[2017-02-07] MEDS ORDERED: Furosemide 20 MG/2 ML VIAL ONE (04:45)
[2017-02-07] MEDS: Aspirin 325 MG Tab.EC PO SCH ×2 (08:45→21:27)
[2017-02-07] MEDS: Gabapentin 100 MG Cap PO SCH ×2 (08:45→21:27)
[2017-02-07] MEDS: Psyllium Husk Powder Sugar Free 3.4 GM Packet PO SCH (08:46)
[2017-02-07] MEDS: Polyethylene Glycol 3350 Powder 17 GM Packet PO SCH (08:47)
--- NOTE | 2017-02-07 11:36 | PCM.CONSN ---
- General Info Date of Service: 02/07/17 Functional Status: Reports: Pain Controlled, Tolerating Diet, Ambulating, Urinating - Patient Data Vitals - Most Recent: Last Vital Signs Temp 37.6 C 02/07/17 10:48 Pulse 83 02/07/17 10:48 Resp 16 02/07/17 10:48 BP 84/54 L 02/07/17 10:48 Pulse Ox 96 02/07/17 10:48 Weight - Most Recent: 143 lb I&O - Last 24 Hours: Intake & Output 02/06/17 02/07/17 02/07/17 22:59 06:59 14:59 Intake Total 1400 Output Total 3000 1025 500 Balance -1600 -1025 -500 Lab Results Last 24 Hours: Laboratory Results - last 24 hr 02/07/17 02/07/17 Range/Units 06:05 06:05 WBC 12.7 H (4.5-11.0) K/uL RBC 3.44 (3.30-5.50) M/uL Hgb 11.1 L (12.0-15.0) g/dL Hct 33.6 L (36.0-48.0) % MCV 98 (80-98) fL MCH 32 H (27-31) pg MCHC 33 (32-36) % Plt Count 140 L (150-400) K/uL Sodium 137 L (140-148) mmol/L Potassium 3.6 (3.6-5.2) mmol/L Chloride 102 (100-108) mmol/L Carbon Dioxide 29 (21-32) mmol/L Anion Gap 9.6 (5.0-14.0) mmol/L BUN 8 (7-18) mg/dL Creatinine 0.9 (0.6-1.0) mg/dL Est Cr Clr Drug Dosing 43.05 mL/min Estimated GFR (MDRD) > 60 (>60) Glucose 129 H (74-106) mg/dL Calcium 8.0 L (8.5-10.1) mg/dL Med Orders - Current: Current Medications Al Hydroxide/Mg Hydroxide (Mag-Al Plus) 30 ml PO Q4H PRN PRN Reason: Constipation Albuterol (Proventil Neb Soln) 2.5 mg NEB Q4H PRN PRN Reason: Shortness Of Breath/wheezing Aspirin (Ecotrin) 325 mg PO BID [facility] Last Admin: 02/07/17 08:45 Dose: 325 mg Bisacodyl (Dulcolax) 10 mg PO DAILY PRN PRN Reason: Constipation Last Admin: 02/06/17 06:29 Dose: 10 mg Diazepam (Valium) 5 mg IVPUSH Q6H PRN PRN Reason: Spasms Diphenhydramine HCl (Benadryl) 25 mg IVPUSH Q4H PRN PRN Reason: Itching Last Admin: 02/06/17 09:55 Dose: 25 mg Docusate Sodium (Colace) 100 mg PO BID PRN PRN Reason: Constipation Gabapentin (Neurontin) 100 mg PO BID [facility] Last Admin: 02/07/17 08:45 Dose: 100 mg Ketorolac Tromethamine (Toradol) 15 mg IVPUSH Q8H PRN PRN Reason: Pain Stop: 02/10/17 13:26 Last Admin: 02/05/17 15:18 Dose: 15 mg Losartan Potassium (Cozaar) 50 mg PO DAILY [facility] Last Admin: 02/05/17 09:53 Dose: Not Given Magnesium Hydroxide (Milk Of Magnesia) 30 ml PO Q12H PRN PRN Reason: Constipation Morphine Sulfate (Morphine) 2 mg IVPUSH Q2H PRN PRN Reason: Pain Last Admin: 02/05/17 14:51 Dose: 2 mg Ondansetron HCl (Zofran) 8 mg IVPUSH Q4H PRN PRN Reason: Nausea/Vomiting Last Admin: 02/05/17 22:17 Dose: 8 mg Oxycodone/Acetaminophen (Percocet 325-5 Mg) 1 tab PO Q4H PRN PRN Reason: Pain Polyethylene Glycol (Miralax) 51 gm PO DAILY [facility] Last Admin: 02/07/17 08:47 Dose: 51 gm Pravastatin Sodium (Pravachol) 10 mg PO BEDTIME [facility] Last Admin: 02/06/17 20:54 Dose: 10 mg Psyllium Husk (Metamucil Sugar Free) 1 packet PO DAILY [facility] Last Admin: 02/07/17 08:46 Dose: 1 packet Senna/Docusate Sodium (Senna Plus) 1 tab PO BID [facility] Last Admin: 02/07/17 08:46 Dose: 1 tab Sodium Chloride (Saline Flush) 10 ml FLUSH ASDIRECTED PRN PRN Reason: Keep Vein Open Tramadol HCl (Ultram) 50 mg PO Q6H PRN PRN Reason: Pain (moderate 4-6) Last Admin: 02/07/17 08:44 Dose: 50 mg Discontinued Medications Acetaminophen (Tylenol) 650 mg PO Q4H PRN PRN Reason: Pain (Mild 1-3)/fever Last Admin: 02/04/17 09:26 Dose: 650 mg Alprazolam (Xanax) 0.25 mg PO BID PRN PRN Reason: Anxiety Aspirin (Halfprin) 81 mg PO DAILY [facility] Last Admin: 02/05/17 09:53 Dose: Not Given Bupivacaine HCl/Epinephrine Bitart (Marcaine 0.5%/Epinephrine 1:200,000) Confirm Administered Dose 50 ml .ROUTE .STK-MED ONE Stop: 02/05/17 13:01 Bupivacaine HCl/Epinephrine Bitart (Marcaine 0.5%/Epinephrine 1:200,000) 30 ml INJECT .STK-MED ONE Stop: 02/05/17 12:39 Last Admin: 02/05/17 12:38 Dose: 30 ml Diltiazem HCl (Cardizem) 30 mg PO STAT ONE Stop: 02/07/17 04:39 Last Admin: 02/07/17 04:47 Dose: 30 mg Diltiazem HCl (Cardizem) Confirm Administered Dose 30 mg .ROUTE .STK-MED ONE Stop: 02/07/17 04:46 Last Admin: 02/07/17 05:01 Dose: Not Given Enoxaparin Sodium (Lovenox) 40 mg SUBCUT ONETIME ONE Stop: 02/04/17 10:01 Last Admin: 02/04/17 10:07 Dose: 40 mg Ephedrine Sulfate (Ephedrine Sulfate) Confirm Administered Dose 50 mg .ROUTE .STK-MED ONE Stop: 02/05/17 12:03 Fentanyl (Sublimaze) Confirm Administered Dose 100 mcg .ROUTE .STK-MED ONE Stop: 02/05/17 11:27 Fentanyl Citrate (Fentanyl In Ns 20 Mcg/Ml 30 Ml Patient Service Specialist) 0 mcg IV ASDIRECTED PRN; Protocol PRN Reason: Pain Last Admin: 02/04/17 09:27 Dose: 600 mcg Furosemide (Lasix) 20 mg IVPUSH STAT ONE Stop: 02/07/17 04:39 Last Admin: 02/07/17 04:47 Dose: 20 mg Furosemide (Lasix) Confirm Administered Dose 20 mg .ROUTE .STK-MED ONE Stop: 02/07/17 04:46 Last Admin: 02/07/17 05:02 Dose: Not Given Gentamicin Sulfate (Gentamicin) Confirm Administered Dose 240 mg .ROUTE .STK- MED ONE Stop: 02/05/17 13:01 Hydromorphone HCl (Dilaudid) 0.5 mg IM ONETIME ONE Stop: 02/03/17 23:34 Last Admin: 02/03/17 23:37 Dose: 0.5 mg Lactated Ringer's (Ringers, Lactated) 1,000 mls @ 125 mls/hr IV ASDIRECTED [facility] Last Admin: 02/06/17 12:09 Dose: 125 mls/hr Clindamycin Phosphate 900 mg/ (Sodium Chloride) 106 mls @ 200 mls/hr IV ONCALL ONE Stop: 02/05/17 11:31 Last Admin: 02/05/17 11:18 Dose: 200 mls/hr Lactated Ringer's (Ringers, Lactated) Confirm Administered Dose 1,000 mls @ as directed .ROUTE .STK-MED ONE Stop: 02/05/17 12:47 Midazolam HCl (Versed 1 Mg/Ml) Confirm Administered Dose 2 mg .ROUTE .STK-MED ONE Stop: 02/05/17 11:27 Naloxone HCl (Narcan) 0.4 mg IVPUSH Q2M PRN PRN Reason: Respiratory Distress Ondansetron HCl (Zofran) 4 mg IVPUSH ONETIME ONE Stop: 02/04/17 03:23 Last Admin: 02/04/17 03:25 Dose: 4 mg Ondansetron HCl (Zofran) 4 mg IVPUSH ONETIME ONE Stop: 02/04/17 04:30 Last Admin: 02/04/17 04:34 Dose: 4 mg Ondansetron HCl (Zofran) 4 mg IV Q4H PRN PRN Reason: Nausea/Vomiting Last Admin: 02/04/17 09:26 Dose: 4 mg Oxycodone HCl (Oxycodone) 5 mg PO Q4H PRN PRN Reason: Pain (moderate 4-6) Oxycodone/Acetaminophen (Percocet 325-5 Mg) 2 tab PO Q4H PRN PRN Reason: Pain Last Admin: 02/06/17 06:29 Dose: 2 tab Polyethylene Glycol (Miralax) 17 gm PO DAILY [facility] Last Admin: 02/06/17 12:10 Dose: Not Given Povidone Iodine (Betadine 10% Soln) 1 ml TOP .STK-MED ONE Stop: 02/05/17 12:39 Last Admin: 02/05/17 12:38 Dose: 1 ml Povidone Iodine (Betadine 10% Soln) Confirm Administered Dose 1 ml .ROUTE .STK- MED ONE Stop: 02/05/17 13:01 Propofol (Diprivan 20 Ml) Confirm Administered Dose 200 mg .ROUTE .STK-MED ONE Stop: 02/05/17 11:26 Senna/Docusate Sodium (Senna Plus) 1 tab PO BID PRN PRN Reason: Constipation Last Admin: 02/05/17 20:50 Dose: 1 tab Tramadol HCl (Ultram) 100 mg PO Q6H PRN PRN Reason: Pain Zolpidem Tartrate (Ambien) 5 mg PO BEDTIME PRN PRN Reason: Sleep - Exam Extremities: Normal Inspection, No Pedal Edema Skin: Warm, Dry, Intact Wound/Incisions: Healing Well, Dressing Dry and Intact Neurological: No New Focal Deficit Psy/Mental Status: Alert Consult PN Assessment/Plan POD#: 2 (1) Closed right hip fracture SNOMED Code(s): 390385287 Code(s): S72.001A - FRACTURE OF UNSP PART OF NECK OF RIGHT FEMUR, INIT Current Visit: Yes Qualifiers: Encounter type: initial encounter Qualified Code(s): S72.001A - Fracture of unspecified part of neck of right femur, initial encounter for closed fracture Problem List Initiated/Reviewed/Updated: Yes Plan: Patient is status pod 3 doing well. We will continue to monitor for the next day. Hospitalist is working with her on her new recent diagnosis of A-fib. She will work with PT/OT on strengthening and continue with pain management.
--- NOTE | 2017-02-07 11:39 | PCM.PN ---
- General Info Date of Service: 02/07/17 Functional Status: Reports: Pain Controlled, Tolerating Diet - Review of Systems General: Reports: Weakness Pulmonary: Reports: Shortness of Breath Cardiovascular: Reports: Other (afib) Systems Review Comment:: Overnight patient developed atrial fibrillation with rapid ventricular response and heart rates up to the 150s. With mild hypoxia mild volume overload was suspected. She was given a single dose of diltiazem and a single dose of furosemide. Since then she has diuresed well and returned to a normal sinus rhythm. She was asymptomatic with the tachycardia. This morning her blood pressure has dropped to the 80s systolic and she feels weak and tired. Hip pain is well-controlled at this time. - Patient Data Vitals - Most Recent: Last Vital Signs Temp 37.6 C 02/07/17 10:48 Pulse 83 02/07/17 10:48 Resp 16 02/07/17 10:48 BP 84/54 L 02/07/17 10:48 Pulse Ox 96 02/07/17 10:48 Weight - Most Recent: 64.864 kg I&O - Last 24 Hours: Intake & Output 02/06/17 02/07/17 02/07/17 22:59 06:59 14:59 Intake Total 1400 Output Total 3000 1025 500 Balance -1600 -1025 -500 Lab Results Last 24 Hours: Laboratory Results - last 24 hr 02/07/17 02/07/17 Range/Units 06:05 06:05 WBC 12.7 H (4.5-11.0) K/uL RBC 3.44 (3.30-5.50) M/uL Hgb 11.1 L (12.0-15.0) g/dL Hct 33.6 L (36.0-48.0) % MCV 98 (80-98) fL MCH 32 H (27-31) pg MCHC 33 (32-36) % Plt Count 140 L (150-400) K/uL Sodium 137 L (140-148) mmol/L Potassium 3.6 (3.6-5.2) mmol/L Chloride 102 (100-108) mmol/L Carbon Dioxide 29 (21-32) mmol/L Anion Gap 9.6 (5.0-14.0) mmol/L BUN 8 (7-18) mg/dL Creatinine 0.9 (0.6-1.0) mg/dL Est Cr Clr Drug Dosing 43.05 mL/min Estimated GFR (MDRD) > 60 (>60) Glucose 129 H (74-106) mg/dL Calcium 8.0 L (8.5-10.1) mg/dL Med Orders - Current: Current Medications Al Hydroxide/Mg Hydroxide (Mag-Al Plus) 30 ml PO Q4H PRN PRN Reason: Constipation Albuterol (Proventil Neb Soln) 2.5 mg NEB Q4H PRN PRN Reason: Shortness Of Breath/wheezing Aspirin (Ecotrin) 325 mg PO BID [facility] Last Admin: 02/07/17 08:45 Dose: 325 mg Bisacodyl (Dulcolax) 10 mg PO DAILY PRN PRN Reason: Constipation Last Admin: 02/06/17 06:29 Dose: 10 mg Diazepam (Valium) 5 mg IVPUSH Q6H PRN PRN Reason: Spasms Diphenhydramine HCl (Benadryl) 25 mg IVPUSH Q4H PRN PRN Reason: Itching Last Admin: 02/06/17 09:55 Dose: 25 mg Docusate Sodium (Colace) 100 mg PO BID PRN PRN Reason: Constipation Gabapentin (Neurontin) 100 mg PO BID [facility] Last Admin: 02/07/17 08:45 Dose: 100 mg Ketorolac Tromethamine (Toradol) 15 mg IVPUSH Q8H PRN PRN Reason: Pain Stop: 02/10/17 13:26 Last Admin: 02/05/17 15:18 Dose: 15 mg Losartan Potassium (Cozaar) 50 mg PO DAILY [facility] Last Admin: 02/05/17 09:53 Dose: Not Given Magnesium Hydroxide (Milk Of Magnesia) 30 ml PO Q12H PRN PRN Reason: Constipation Morphine Sulfate (Morphine) 2 mg IVPUSH Q2H PRN PRN Reason: Pain Last Admin: 02/05/17 14:51 Dose: 2 mg Ondansetron HCl (Zofran) 8 mg IVPUSH Q4H PRN PRN Reason: Nausea/Vomiting Last Admin: 02/05/17 22:17 Dose: 8 mg Oxycodone/Acetaminophen (Percocet 325-5 Mg) 1 tab PO Q4H PRN PRN Reason: Pain Polyethylene Glycol (Miralax) 51 gm PO DAILY [facility] Last Admin: 02/07/17 08:47 Dose: 51 gm Potassium Chloride (Klor-Con M20) 40 meq PO ONETIME ONE Stop: 02/07/17 11:37 Pravastatin Sodium (Pravachol) 10 mg PO BEDTIME [facility] Last Admin: 02/06/17 20:54 Dose: 10 mg Psyllium Husk (Metamucil Sugar Free) 1 packet PO DAILY [facility] Last Admin: 02/07/17 08:46 Dose: 1 packet Senna/Docusate Sodium (Senna Plus) 1 tab PO BID [facility] Last Admin: 02/07/17 08:46 Dose: 1 tab Sodium Chloride (Saline Flush) 10 ml FLUSH ASDIRECTED PRN PRN Reason: Keep Vein Open Tramadol HCl (Ultram) 50 mg PO Q6H PRN PRN Reason: Pain (moderate 4-6) Last Admin: 02/07/17 08:44 Dose: 50 mg Discontinued Medications Acetaminophen (Tylenol) 650 mg PO Q4H PRN PRN Reason: Pain (Mild 1-3)/fever Last Admin: 02/04/17 09:26 Dose: 650 mg Alprazolam (Xanax) 0.25 mg PO BID PRN PRN Reason: Anxiety Aspirin (Halfprin) 81 mg PO DAILY [facility] Last Admin: 02/05/17 09:53 Dose: Not Given Bupivacaine HCl/Epinephrine Bitart (Marcaine 0.5%/Epinephrine 1:200,000) Confirm Administered Dose 50 ml .ROUTE .STK-MED ONE Stop: 02/05/17 13:01 Bupivacaine HCl/Epinephrine Bitart (Marcaine 0.5%/Epinephrine 1:200,000) 30 ml INJECT .STK-MED ONE Stop: 02/05/17 12:39 Last Admin: 02/05/17 12:38 Dose: 30 ml Diltiazem HCl (Cardizem) 30 mg PO STAT ONE Stop: 02/07/17 04:39 Last Admin: 02/07/17 04:47 Dose: 30 mg Diltiazem HCl (Cardizem) Confirm Administered Dose 30 mg .ROUTE .STK-MED ONE Stop: 02/07/17 04:46 Last Admin: 02/07/17 05:01 Dose: Not Given Enoxaparin Sodium (Lovenox) 40 mg SUBCUT ONETIME ONE Stop: 02/04/17 10:01 Last Admin: 02/04/17 10:07 Dose: 40 mg Ephedrine Sulfate (Ephedrine Sulfate) Confirm Administered Dose 50 mg .ROUTE .STK-MED ONE Stop: 02/05/17 12:03 Fentanyl (Sublimaze) Confirm Administered Dose 100 mcg .ROUTE .STK-MED ONE Stop: 02/05/17 11:27 Fentanyl Citrate (Fentanyl In Ns 20 Mcg/Ml 30 Ml [employer] P[employer]) 0 mcg IV ASDIRECTED PRN; Protocol PRN Reason: Pain Last Admin: 02/04/17 09:27 Dose: 600 mcg Furosemide (Lasix) 20 mg IVPUSH STAT ONE Stop: 02/07/17 04:39 Last Admin: 02/07/17 04:47 Dose: 20 mg Furosemide (Lasix) Confirm Administered Dose 20 mg .ROUTE .STK-MED ONE Stop: 02/07/17 04:46 Last Admin: 02/07/17 05:02 Dose: Not Given Gentamicin Sulfate (Gentamicin) Confirm Administered Dose 240 mg .ROUTE .ST- MED ONE Stop: 02/05/17 13:01 Hydromorphone HCl (Dilaudid) 0.5 mg IM ONETIME ONE Stop: 02/03/17 23:34 Last Admin: 02/03/17 23:37 Dose: 0.5 mg Lactated Ringer's (Ringers, Lactated) 1,000 mls @ 125 mls/hr IV ASDIRECTED [facility] Last Admin: 02/06/17 12:09 Dose: 125 mls/hr Clindamycin Phosphate 900 mg/ (Sodium Chloride) 106 mls @ 200 mls/hr IV ONCALL ONE Stop: 02/05/17 11:31 Last Admin: 02/05/17 11:18 Dose: 200 mls/hr Lactated Ringer's (Ringers, Lactated) Confirm Administered Dose 1,000 mls @ as directed .ROUTE .STK-MED ONE Stop: 02/05/17 12:47 Midazolam HCl (Versed 1 Mg/Ml) Confirm Administered Dose 2 mg .ROUTE .STK-MED ONE Stop: 02/05/17 11:27 Naloxone HCl (Narcan) 0.4 mg IVPUSH Q2M PRN PRN Reason: Respiratory Distress Ondansetron HCl (Zofran) 4 mg IVPUSH ONETIME ONE Stop: 02/04/17 03:23 Last Admin: 02/04/17 03:25 Dose: 4 mg Ondansetron HCl (Zofran) 4 mg IVPUSH ONETIME ONE Stop: 02/04/17 04:30 Last Admin: 02/04/17 04:34 Dose: 4 mg Ondansetron HCl (Zofran) 4 mg IV Q4H PRN PRN Reason: Nausea/Vomiting Last Admin: 02/04/17 09:26 Dose: 4 mg Oxycodone HCl (Oxycodone) 5 mg PO Q4H PRN PRN Reason: Pain (moderate 4-6) Oxycodone/Acetaminophen (Percocet 325-5 Mg) 2 tab PO Q4H PRN PRN Reason: Pain Last Admin: 02/06/17 06:29 Dose: 2 tab Polyethylene Glycol (Miralax) 17 gm PO DAILY [facility] Last Admin: 02/06/17 12:10 Dose: Not Given Povidone Iodine (Betadine 10% Soln) 1 ml TOP .STK-MED ONE Stop: 02/05/17 12:39 Last Admin: 02/05/17 12:38 Dose: 1 ml Povidone Iodine (Betadine 10% Soln) Confirm Administered Dose 1 ml .ROUTE .STK- MED ONE Stop: 02/05/17 13:01 Propofol (Diprivan 20 Ml) Confirm Administered Dose 200 mg .ROUTE .STK-MED ONE Stop: 02/05/17 11:26 Senna/Docusate Sodium (Senna Plus) 1 tab PO BID PRN PRN Reason: Constipation Last Admin: 02/05/17 20:50 Dose: 1 tab Tramadol HCl (Ultram) 100 mg PO Q6H PRN PRN Reason: Pain Zolpidem Tartrate (Ambien) 5 mg PO BEDTIME PRN PRN Reason: Sleep - Exam Quality Assessment: Supplemental Oxygen General: Alert, Oriented, Cooperative, No Acute Distress Neck: Supple Lungs: Clear to Auscultation, Normal Respiratory Effort, Decreased Breath Sounds (mild left lung base) Cardiovascular: Regular Rate, Regular Rhythm. No: Murmurs GI/Abdominal Exam: Soft, No Distention Extremities: No Pedal Edema. No: Increased Warmth Skin: Warm, Dry Wound/Incisions: Dressing Dry and Intact Psy/Mental Status: Alert, Normal Affect - Problem List Review Problem List Initiated/Reviewed/Updated: Yes - My Orders Last 24 Hours: My Active Orders 02/06/17 10:54 Acetaminophen/oxyCODONE [Percocet 325-5 MG] 1 tab PO Q4H PRN 02/06/17 10:55 traMADol [Ultram] 50 mg PO Q6H PRN 02/06/17 17:55 Convert IV to Saline Lock [OM.PC] Routine 02/07/17 04:30 EKG 12 Lead [EK] Routine 02/07/17 04:51 EKG Documentation Completion [RC] ASDIRECTED 02/07/17 11:36 Discontinue Telemetry Monitoring [Cardiac Monitoring Discontinue] [RC] Click to Edit Potassium Chloride [Klor-Con M20] 40 meq PO ONETIME ONE 02/08/17 05:00 BASIC METABOLIC PANEL,BMP [CHEM] Timed CBC W/O DIFF,HEMOGRAM [HEME] Timed (1) - Plan Plan:: ASSESSMENT AND PLAN RIGHT HIP FRACTURE - fracture secondary to accidental injury. Surgical intervention with hemiarthroplasty completed 02/05. Postop course complicated by oversedation and volume overload. She is weak this morning with a borderline low blood pressure and this has limited her physical therapy. -postop cares per surgical team -Physical therapy Paroxysmal atrial fibrillation with rapid ventricular response - probably secondary to volume overload and has responded well to a single dose of diltiazem and she is back in sinus rhythm. Blood pressures borderline low this morning. -Consider small fluid bolus if blood pressure does not improve CHRONIC CONSTIPATION - no major issues so far with large Marlex dose daily -Continue outpatient medical regimen HYPERTENSION - blood pressures have been on the low side and medications will be held today. MAINTENANCE ISSUES -DVT prophylaxis; SCUDs and twice daily aspirin -GI prophylaxis; not indicated -Valles catheter; removed 02/07 -Nutrition; regular diet DISPOSITION - anticipate discharge to care home after the hospital stay. Killian Shearer M.D.
[2017-02-07] MEDS ORDERED: Potassium Chloride 20 MEQ Tab.ER PO ONE (12:00)
[2017-02-07] MEDS ORDERED: Sodium Chloride 0.9% 500 ML IV ONE (13:49)
[2017-02-07] MEDS: Pravastatin 20 MG Tab PO SCH (21:28)
[2017-02-08] MEDS: traMADol 50 MG Tab PO PRN ×2 (09:06→21:40)
--- NOTE | 2017-02-08 09:08 | PCM.PN ---
- General Info Date of Service: 02/08/17 Admission Dx/Problem (Free Text): Cristiana is a pleasant 81-year-old female status postop day 3 of hemiarthroplasty. She is doing very well. Patient continues to work with PT OT for strengthening. Pain management is under control with oral pain medication. - Review of Systems General: Reports: No Symptoms Neurological: Reports: No Symptoms - Patient Data Vitals - Most Recent: Last Vital Signs Temp 35.9 C 02/08/17 07:42 Pulse 79 02/08/17 07:42 Resp 16 02/08/17 07:42 BP 119/76 02/08/17 07:42 Pulse Ox 97 02/08/17 07:42 Weight - Most Recent: 143 lb I&O - Last 24 Hours: Intake & Output 02/07/17 02/08/17 02/08/17 22:59 06:59 14:59 Intake Total 470 Output Total 500 500 Balance -500 -30 Lab Results Last 24 Hours: Laboratory Results - last 24 hr 02/08/17 02/08/17 Range/Units 04:40 04:40 WBC 10.6 (4.5-11.0) K/uL RBC 3.15 L (3.30-5.50) M/uL Hgb 10.1 L (12.0-15.0) g/dL Hct 30.5 L (36.0-48.0) % MCV 97 (80-98) fL MCH 32 H (27-31) pg MCHC 33 (32-36) % Plt Count 141 L (150-400) K/uL Sodium 135 L (140-148) mmol/L Potassium 4.0 (3.6-5.2) mmol/L Chloride 102 (100-108) mmol/L Carbon Dioxide 28 (21-32) mmol/L Anion Gap 9.0 (5.0-14.0) mmol/L BUN 8 (7-18) mg/dL Creatinine 0.7 (0.6-1.0) mg/dL Est Cr Clr Drug Dosing 55.35 mL/min Estimated GFR (MDRD) > 60 (>60) Glucose 121 H (74-106) mg/dL Calcium 7.6 L (8.5-10.1) mg/dL Med Orders - Current: Current Medications Al Hydroxide/Mg Hydroxide (Mag-Al Plus) 30 ml PO Q4H PRN PRN Reason: Constipation Albuterol (Proventil Neb Soln) 2.5 mg NEB Q4H PRN PRN Reason: Shortness Of Breath/wheezing Aspirin (Ecotrin) 325 mg PO BID [facility] Last Admin: 02/07/17 21:27 Dose: 325 mg Bisacodyl (Dulcolax) 10 mg PO DAILY PRN PRN Reason: Constipation Last Admin: 02/06/17 06:29 Dose: 10 mg Diazepam (Valium) 5 mg IVPUSH Q6H PRN PRN Reason: Spasms Diphenhydramine HCl (Benadryl) 25 mg IVPUSH Q4H PRN PRN Reason: Itching Last Admin: 02/06/17 09:55 Dose: 25 mg Docusate Sodium (Colace) 100 mg PO BID PRN PRN Reason: Constipation Gabapentin (Neurontin) 100 mg PO BID [facility] Last Admin: 02/07/17 21:27 Dose: 100 mg Ketorolac Tromethamine (Toradol) 15 mg IVPUSH Q8H PRN PRN Reason: Pain Stop: 02/10/17 13:26 Last Admin: 02/05/17 15:18 Dose: 15 mg Losartan Potassium (Cozaar) 50 mg PO DAILY [facility] Last Admin: 02/05/17 09:53 Dose: Not Given Magnesium Hydroxide (Milk Of Magnesia) 30 ml PO Q12H PRN PRN Reason: Constipation Morphine Sulfate (Morphine) 2 mg IVPUSH Q2H PRN PRN Reason: Pain Last Admin: 02/05/17 14:51 Dose: 2 mg Ondansetron HCl (Zofran) 8 mg IVPUSH Q4H PRN PRN Reason: Nausea/Vomiting Last Admin: 02/05/17 22:17 Dose: 8 mg Oxycodone/Acetaminophen (Percocet 325-5 Mg) 1 tab PO Q4H PRN PRN Reason: Pain Polyethylene Glycol (Miralax) 51 gm PO DAILY [facility] Last Admin: 02/07/17 08:47 Dose: 51 gm Pravastatin Sodium (Pravachol) 10 mg PO BEDTIME [facility] Last Admin: 02/07/17 21:28 Dose: 10 mg Psyllium Husk (Metamucil Sugar Free) 1 packet PO DAILY [facility] Last Admin: 02/07/17 08:46 Dose: 1 packet Senna/Docusate Sodium (Senna Plus) 1 tab PO BID [facility] Last Admin: 02/07/17 21:28 Dose: 1 tab Sodium Chloride (Saline Flush) 10 ml FLUSH ASDIRECTED PRN PRN Reason: Keep Vein Open Tramadol HCl (Ultram) 50 mg PO Q6H PRN PRN Reason: Pain (moderate 4-6) Last Admin: 02/08/17 09:06 Dose: 50 mg Discontinued Medications Acetaminophen (Tylenol) 650 mg PO Q4H PRN PRN Reason: Pain (Mild 1-3)/fever Last Admin: 02/04/17 09:26 Dose: 650 mg Alprazolam (Xanax) 0.25 mg PO BID PRN PRN Reason: Anxiety Aspirin (Halfprin) 81 mg PO DAILY [facility] Last Admin: 02/05/17 09:53 Dose: Not Given Bupivacaine HCl/Epinephrine Bitart (Marcaine 0.5%/Epinephrine 1:200,000) Confirm Administered Dose 50 ml .ROUTE .STK-MED ONE Stop: 02/05/17 13:01 Bupivacaine HCl/Epinephrine Bitart (Marcaine 0.5%/Epinephrine 1:200,000) 30 ml INJECT .STK-MED ONE Stop: 02/05/17 12:39 Last Admin: 02/05/17 12:38 Dose: 30 ml Diltiazem HCl (Cardizem) 30 mg PO STAT ONE Stop: 02/07/17 04:39 Last Admin: 02/07/17 04:47 Dose: 30 mg Diltiazem HCl (Cardizem) Confirm Administered Dose 30 mg .ROUTE .STK-MED ONE Stop: 02/07/17 04:46 Last Admin: 02/07/17 05:01 Dose: Not Given Enoxaparin Sodium (Lovenox) 40 mg SUBCUT ONETIME ONE Stop: 02/04/17 10:01 Last Admin: 02/04/17 10:07 Dose: 40 mg Ephedrine Sulfate (Ephedrine Sulfate) Confirm Administered Dose 50 mg .ROUTE .STK-MED ONE Stop: 02/05/17 12:03 Fentanyl (Sublimaze) Confirm Administered Dose 100 mcg .ROUTE .STK-MED ONE Stop: 02/05/17 11:27 Fentanyl Citrate (Fentanyl In Ns 20 Mcg/Ml 30 Ml Tank Welder) 0 mcg IV ASDIRECTED PRN; Protocol PRN Reason: Pain Last Admin: 02/04/17 09:27 Dose: 600 mcg Furosemide (Lasix) 20 mg IVPUSH STAT ONE Stop: 02/07/17 04:39 Last Admin: 02/07/17 04:47 Dose: 20 mg Furosemide (Lasix) Confirm Administered Dose 20 mg .ROUTE .STK-MED ONE Stop: 02/07/17 04:46 Last Admin: 02/07/17 05:02 Dose: Not Given Gentamicin Sulfate (Gentamicin) Confirm Administered Dose 240 mg .ROUTE .STK- MED ONE Stop: 02/05/17 13:01 Hydromorphone HCl (Dilaudid) 0.5 mg IM ONETIME ONE Stop: 02/03/17 23:34 Last Admin: 02/03/17 23:37 Dose: 0.5 mg Lactated Ringer's (Ringers, Lactated) 1,000 mls @ 125 mls/hr IV ASDIRECTED [facility] Last Admin: 02/06/17 12:09 Dose: 125 mls/hr Clindamycin Phosphate 900 mg/ (Sodium Chloride) 106 mls @ 200 mls/hr IV ONCALL ONE Stop: 02/05/17 11:31 Last Admin: 02/05/17 11:18 Dose: 200 mls/hr Lactated Ringer's (Ringers, Lactated) Confirm Administered Dose 1,000 mls @ as directed .ROUTE .STK-MED ONE Stop: 02/05/17 12:47 Sodium Chloride (Normal Saline) 500 mls @ 500 mls/hr IV .BOLUS ONE Stop: 02/07/17 14:48 Last Admin: 02/07/17 13:40 Dose: 500 mls/hr Midazolam HCl (Versed 1 Mg/Ml) Confirm Administered Dose 2 mg .ROUTE .STK-MED ONE Stop: 02/05/17 11:27 Naloxone HCl (Narcan) 0.4 mg IVPUSH Q2M PRN PRN Reason: Respiratory Distress Ondansetron HCl (Zofran) 4 mg IVPUSH ONETIME ONE Stop: 02/04/17 03:23 Last Admin: 02/04/17 03:25 Dose: 4 mg Ondansetron HCl (Zofran) 4 mg IVPUSH ONETIME ONE Stop: 02/04/17 04:30 Last Admin: 02/04/17 04:34 Dose: 4 mg Ondansetron HCl (Zofran) 4 mg IV Q4H PRN PRN Reason: Nausea/Vomiting Last Admin: 02/04/17 09:26 Dose: 4 mg Oxycodone HCl (Oxycodone) 5 mg PO Q4H PRN PRN Reason: Pain (moderate 4-6) Oxycodone/Acetaminophen (Percocet 325-5 Mg) 2 tab PO Q4H PRN PRN Reason: Pain Last Admin: 02/06/17 06:29 Dose: 2 tab Polyethylene Glycol (Miralax) 17 gm PO DAILY [facility] Last Admin: 02/06/17 12:10 Dose: Not Given Potassium Chloride (Klor-Con M20) 40 meq PO ONETIME ONE Stop: 02/07/17 12:01 Last Admin: 02/07/17 13:31 Dose: 40 meq Povidone Iodine (Betadine 10% Soln) 1 ml TOP .STK-MED ONE Stop: 02/05/17 12:39 Last Admin: 02/05/17 12:38 Dose: 1 ml Povidone Iodine (Betadine 10% Soln) Confirm Administered Dose 1 ml .ROUTE .STK- MED ONE Stop: 02/05/17 13:01 Propofol (Diprivan 20 Ml) Confirm Administered Dose 200 mg .ROUTE .STK-MED ONE Stop: 02/05/17 11:26 Senna/Docusate Sodium (Senna Plus) 1 tab PO BID PRN PRN Reason: Constipation Last Admin: 02/05/17 20:50 Dose: 1 tab Tramadol HCl (Ultram) 100 mg PO Q6H PRN PRN Reason: Pain Zolpidem Tartrate (Ambien) 5 mg PO BEDTIME PRN PRN Reason: Sleep - Exam General: Alert, Oriented Extremities: Normal Inspection, No Pedal Edema, Normal Capillary Refill Skin: Warm, Dry, Intact Wound/Incisions: Healing Well, Dressing Dry and Intact Neurological: No New Focal Deficit Psy/Mental Status: Alert - Problem List & Annotations (1) Closed right hip fracture SNOMED Code(s): 445287513 Code(s): S72.001A - FRACTURE OF UNSP PART OF NECK OF RIGHT FEMUR, INIT Status: Acute Current Visit: Yes Qualifiers: Encounter type: initial encounter Qualified Code(s): S72.001A - Fracture of unspecified part of neck of right femur, initial encounter for closed fracture - Problem List Review Problem List Initiated/Reviewed/Updated: Yes - Plan Plan:: ASSESSMENT AND PLAN RIGHT HIP FRACTURE - patient is status postop day 3 of a hemiarthroplasty. She is doing very well. We are discharging her from orthopedics is at this time. Hospital continue to monitor her status. Patient will need a short-term rehabilitation stay for treatment. We'll see her back in 2 weeks for recheck. She'll continue on Percocet for pain management.
[2017-02-08] MEDS: Losartan 50 MG Tab PO SCH (09:11)
[2017-02-08] MEDS: Gabapentin 100 MG Cap PO SCH ×2 (09:11→21:39)
[2017-02-08] MEDS: Ondansetron 4 MG/2 ML SDV IVPUSH PRN (09:30)
[2017-02-08] MEDS: Aspirin 325 MG Tab.EC PO SCH ×2 (09:30→21:39)
[2017-02-08] MEDS: Polyethylene Glycol 3350 Powder 17 GM Packet PO SCH (10:10)
[2017-02-08] MEDS: Psyllium Husk Powder Sugar Free 3.4 GM Packet PO SCH (10:10)
[2017-02-08] MEDS ORDERED: LORazepam 2 MG/ML MDV IVPUSH ONE (11:30)
--- NOTE | 2017-02-08 11:36 | PCM.PN ---
- General Info Date of Service: 02/08/17 Functional Status: Denies: Pain Controlled, Tolerating Diet - Review of Systems General: Reports: Weakness Gastrointestinal: Reports: Abdominal Pain, Nausea, Vomiting Systems Review Comment:: No acute events overnight though this morning she has nausea, vomiting and periumbilical abdominal pain. She is not quite sure when the pain started. She vomited up her breakfast this morning. She describes as moderate sharp midabdominal pain and this radiates throughout her abdomen. Worse with movement. She does not feel short of breath. Heart rate noted to be irregular and EKG confirmed atrial fibrillation. - Patient Data Vitals - Most Recent: Last Vital Signs Temp 35.9 C 02/08/17 07:42 Pulse 73 02/08/17 10:55 Resp 16 02/08/17 07:42 BP 129/84 02/08/17 10:55 Pulse Ox 97 02/08/17 07:42 Weight - Most Recent: 64.864 kg I&O - Last 24 Hours: Intake & Output 02/07/17 02/08/17 02/08/17 22:59 06:59 14:59 Intake Total 470 Output Total 500 500 Balance -500 -30 Lab Results Last 24 Hours: Laboratory Results - last 24 hr 02/08/17 02/08/17 Range/Units 04:40 04:40 WBC 10.6 (4.5-11.0) K/uL RBC 3.15 L (3.30-5.50) M/uL Hgb 10.1 L (12.0-15.0) g/dL Hct 30.5 L (36.0-48.0) % MCV 97 (80-98) fL MCH 32 H (27-31) pg MCHC 33 (32-36) % Plt Count 141 L (150-400) K/uL Sodium 135 L (140-148) mmol/L Potassium 4.0 (3.6-5.2) mmol/L Chloride 102 (100-108) mmol/L Carbon Dioxide 28 (21-32) mmol/L Anion Gap 9.0 (5.0-14.0) mmol/L BUN 8 (7-18) mg/dL Creatinine 0.7 (0.6-1.0) mg/dL Est Cr Clr Drug Dosing 55.35 mL/min Estimated GFR (MDRD) > 60 (>60) Glucose 121 H (74-106) mg/dL Calcium 7.6 L (8.5-10.1) mg/dL Med Orders - Current: Current Medications Al Hydroxide/Mg Hydroxide (Mag-Al Plus) 30 ml PO Q4H PRN PRN Reason: Constipation Albuterol (Proventil Neb Soln) 2.5 mg NEB Q4H PRN PRN Reason: Shortness Of Breath/wheezing Aspirin (Ecotrin) 325 mg PO BID [facility] Last Admin: 02/08/17 09:30 Dose: 325 mg Bisacodyl (Dulcolax) 10 mg PO DAILY PRN PRN Reason: Constipation Last Admin: 02/06/17 06:29 Dose: 10 mg Diphenhydramine HCl (Benadryl) 25 mg IVPUSH Q4H PRN PRN Reason: Itching Last Admin: 02/06/17 09:55 Dose: 25 mg Docusate Sodium (Colace) 100 mg PO BID PRN PRN Reason: Constipation Gabapentin (Neurontin) 100 mg PO BID [facility] Last Admin: 02/08/17 09:11 Dose: 100 mg Losartan Potassium (Cozaar) 50 mg PO DAILY [facility] Last Admin: 02/08/17 09:11 Dose: 50 mg Magnesium Hydroxide (Milk Of Magnesia) 30 ml PO Q12H PRN PRN Reason: Constipation Morphine Sulfate (Morphine) 2 mg IVPUSH Q2H PRN PRN Reason: Pain Last Admin: 02/05/17 14:51 Dose: 2 mg Ondansetron HCl (Zofran) 8 mg IVPUSH Q4H PRN PRN Reason: Nausea/Vomiting Last Admin: 02/08/17 09:30 Dose: 4 mg Oxycodone/Acetaminophen (Percocet 325-5 Mg) 1 tab PO Q4H PRN PRN Reason: Pain Polyethylene Glycol (Miralax) 51 gm PO DAILY [facility] Last Admin: 02/08/17 10:10 Dose: Not Given Pravastatin Sodium (Pravachol) 10 mg PO BEDTIME [facility] Last Admin: 02/07/17 21:28 Dose: 10 mg Psyllium Husk (Metamucil Sugar Free) 1 packet PO DAILY [facility] Last Admin: 02/08/17 10:10 Dose: Not Given Sodium Chloride (Saline Flush) 10 ml FLUSH ASDIRECTED PRN PRN Reason: Keep Vein Open Tramadol HCl (Ultram) 50 mg PO Q6H PRN PRN Reason: Pain (moderate 4-6) Last Admin: 02/08/17 09:06 Dose: 50 mg Discontinued Medications Acetaminophen (Tylenol) 650 mg PO Q4H PRN PRN Reason: Pain (Mild 1-3)/fever Last Admin: 02/04/17 09:26 Dose: 650 mg Alprazolam (Xanax) 0.25 mg PO BID PRN PRN Reason: Anxiety Aspirin (Halfprin) 81 mg PO DAILY [facility] Last Admin: 02/05/17 09:53 Dose: Not Given Bupivacaine HCl/Epinephrine Bitart (Marcaine 0.5%/Epinephrine 1:200,000) Confirm Administered Dose 50 ml .ROUTE .STK-MED ONE Stop: 02/05/17 13:01 Bupivacaine HCl/Epinephrine Bitart (Marcaine 0.5%/Epinephrine 1:200,000) 30 ml INJECT .STK-MED ONE Stop: 02/05/17 12:39 Last Admin: 02/05/17 12:38 Dose: 30 ml Diazepam (Valium) 5 mg IVPUSH Q6H PRN PRN Reason: Spasms Diltiazem HCl (Cardizem) 30 mg PO STAT ONE Stop: 02/07/17 04:39 Last Admin: 02/07/17 04:47 Dose: 30 mg Diltiazem HCl (Cardizem) Confirm Administered Dose 30 mg .ROUTE .STK-MED ONE Stop: 02/07/17 04:46 Last Admin: 02/07/17 05:01 Dose: Not Given Enoxaparin Sodium (Lovenox) 40 mg SUBCUT ONETIME ONE Stop: 02/04/17 10:01 Last Admin: 02/04/17 10:07 Dose: 40 mg Ephedrine Sulfate (Ephedrine Sulfate) Confirm Administered Dose 50 mg .ROUTE .STK-MED ONE Stop: 02/05/17 12:03 Fentanyl (Sublimaze) Confirm Administered Dose 100 mcg .ROUTE .STK-MED ONE Stop: 02/05/17 11:27 Fentanyl Citrate (Fentanyl In Ns 20 Mcg/Ml 30 Ml Project Coordinator) 0 mcg IV ASDIRECTED PRN; Protocol PRN Reason: Pain Last Admin: 02/04/17 09:27 Dose: 600 mcg Furosemide (Lasix) 20 mg IVPUSH STAT ONE Stop: 02/07/17 04:39 Last Admin: 02/07/17 04:47 Dose: 20 mg Furosemide (Lasix) Confirm Administered Dose 20 mg .ROUTE .STK-MED ONE Stop: 02/07/17 04:46 Last Admin: 02/07/17 05:02 Dose: Not Given Gentamicin Sulfate (Gentamicin) Confirm Administered Dose 240 mg .ROUTE .STK- MED ONE Stop: 02/05/17 13:01 Hydromorphone HCl (Dilaudid) 0.5 mg IM ONETIME ONE Stop: 02/03/17 23:34 Last Admin: 02/03/17 23:37 Dose: 0.5 mg Lactated Ringer's (Ringers, Lactated) 1,000 mls @ 125 mls/hr IV ASDIRECTED [facility] Last Admin: 02/06/17 12:09 Dose: 125 mls/hr Clindamycin Phosphate 900 mg/ (Sodium Chloride) 106 mls @ 200 mls/hr IV ONCALL ONE Stop: 02/05/17 11:31 Last Admin: 02/05/17 11:18 Dose: 200 mls/hr Lactated Ringer's (Ringers, Lactated) Confirm Administered Dose 1,000 mls @ as directed .ROUTE .STK-MED ONE Stop: 02/05/17 12:47 Sodium Chloride (Normal Saline) 500 mls @ 500 mls/hr IV .BOLUS ONE Stop: 02/07/17 14:48 Last Admin: 02/07/17 13:40 Dose: 500 mls/hr Ketorolac Tromethamine (Toradol) 15 mg IVPUSH Q8H PRN PRN Reason: Pain Stop: 02/10/17 13:26 Last Admin: 02/05/17 15:18 Dose: 15 mg Lorazepam (Ativan) 0.5 mg IVPUSH ONETIME ONE Stop: 02/08/17 11:31 Midazolam HCl (Versed 1 Mg/Ml) Confirm Administered Dose 2 mg .ROUTE .STK-MED ONE Stop: 02/05/17 11:27 Naloxone HCl (Narcan) 0.4 mg IVPUSH Q2M PRN PRN Reason: Respiratory Distress Ondansetron HCl (Zofran) 4 mg IVPUSH ONETIME ONE Stop: 02/04/17 03:23 Last Admin: 02/04/17 03:25 Dose: 4 mg Ondansetron HCl (Zofran) 4 mg IVPUSH ONETIME ONE Stop: 02/04/17 04:30 Last Admin: 02/04/17 04:34 Dose: 4 mg Ondansetron HCl (Zofran) 4 mg IV Q4H PRN PRN Reason: Nausea/Vomiting Last Admin: 02/04/17 09:26 Dose: 4 mg Oxycodone HCl (Oxycodone) 5 mg PO Q4H PRN PRN Reason: Pain (moderate 4-6) Oxycodone/Acetaminophen (Percocet 325-5 Mg) 2 tab PO Q4H PRN PRN Reason: Pain Last Admin: 02/06/17 06:29 Dose: 2 tab Polyethylene Glycol (Miralax) 17 gm PO DAILY [facility] Last Admin: 02/06/17 12:10 Dose: Not Given Potassium Chloride (Klor-Con M20) 40 meq PO ONETIME ONE Stop: 02/07/17 12:01 Last Admin: 02/07/17 13:31 Dose: 40 meq Povidone Iodine (Betadine 10% Soln) 1 ml TOP .STK-MED ONE Stop: 02/05/17 12:39 Last Admin: 02/05/17 12:38 Dose: 1 ml Povidone Iodine (Betadine 10% Soln) Confirm Administered Dose 1 ml .ROUTE .STK- MED ONE Stop: 02/05/17 13:01 Propofol (Diprivan 20 Ml) Confirm Administered Dose 200 mg .ROUTE .STK-MED ONE Stop: 02/05/17 11:26 Senna/Docusate Sodium (Senna Plus) 1 tab PO BID PRN PRN Reason: Constipation Last Admin: 02/05/17 20:50 Dose: 1 tab Senna/Docusate Sodium (Senna Plus) 1 tab PO BID [facility] Last Admin: 02/08/17 10:53 Dose: Not Given Tramadol HCl (Ultram) 100 mg PO Q6H PRN PRN Reason: Pain Zolpidem Tartrate (Ambien) 5 mg PO BEDTIME PRN PRN Reason: Sleep - Exam Quality Assessment: Supplemental Oxygen General: Alert, Oriented, Cooperative, Moderate Distress Neck: Supple Lungs: Clear to Auscultation, Normal Respiratory Effort, Decreased Breath Sounds (mild at bases) Cardiovascular: Irregular Rhythm, Tachycardia GI/Abdominal Exam: Normal Bowel Sounds, Soft, No Distention, Tender (moderate periumbilical pain ) Extremities: Normal Inspection, No Pedal Edema. No: Increased Warmth Skin: Warm, Dry Psy/Mental Status: Alert, Normal Affect - Problem List Review Problem List Initiated/Reviewed/Updated: Yes - My Orders Last 24 Hours: My Active Orders 02/08/17 11:30 EKG Documentation Completion [RC] ASDIRECTED Abdomen Pelvis w Cont [CT] Routine EKG 12 Lead [EK] Urgent 02/08/17 11:32 UA W/MICROSCOPIC [URIN] Routine 02/09/17 05:00 BASIC METABOLIC PANEL,BMP [CHEM] Timed CBC W/O DIFF,HEMOGRAM [HEME] Timed (1) - Plan Plan:: ASSESSMENT AND PLAN RIGHT HIP FRACTURE - fracture secondary to accidental injury. Surgical intervention with hemiarthroplasty completed 02/05. Postop course complicated by oversedation and volume overload and now abdominal pain. Physical therapy has been limited because of medical issues. -postop cares per surgical team -Physical therapy Periumbilical abdominal pain - etiology not entirely clear. Bowels have been moving. No fevers. CT scan did not show acute pathology to suggest pain. Possible duodenitis was noted. Some fluid in the colon that the radiologist felt could be consistent with diarrhea and she did have diarrhea this morning. -Pain control -Nausea control -Nothing by mouth after midnight in case we need to do further investigation tomorrow morning Paroxysmal atrial fibrillation with rapid ventricular response - probably secondary to volume overload and responded to oral diltiazem the other day but has recurred now. Volume status seems more appropriate at this time. No strong evidence for infection at this point. Mild hypoxia. -Telemetry -Low-dose diltiazem -Supplement oxygen CHRONIC CONSTIPATION - no major issues so far with large miralax dose daily -Continue outpatient medical regimen MAINTENANCE ISSUES -DVT prophylaxis; SCUDs and twice daily aspirin -GI prophylaxis; not indicated -Valles catheter; removed 02/07 -Nutrition; regular diet DISPOSITION - anticipate discharge to alf after the hospital stay. Killian Shearer M.D.
[2017-02-08] MEDS ORDERED: Iopamidol 612 MG/ML 100 ML Bottle IV PRN (12:11)
[2017-02-08] MEDS ORDERED: Sodium Chloride 0.9% 10 ML Syringe FLUSH PRN (12:11)
--- NOTE | 2017-02-08 12:55 | CT ---
CT abdomen and pelvis. Total DLP 550 Indication: Periumbilical pain. Findings: Trace left and right pleural effusions. Atelectasis within the lung bases. Liver within no rmal limits. Mild distention of the gallbladder. Adrenal glands are within normal limits. Splenic gr anulomas. Pancreatic atrophy. There is a cystic mass within the head of the pancreas at 15 mm. There is slight wall thickening of the first and second portion the duodenum at most. Small bowel loops a re nondilated. There is fluid throughout the colon with air-fluid levels. No fat stranding. Terminal ileum within normal limits. The appendix is nonvisualized on this examination. A few tiny cysts in the right ovary. Mildly atherosclerotic nonaneurysmal aorta. Left extrarenal pelvis. Difficult to ex clude slight left hydronephrosis. No dilatation of the left ureter. There is air within the bladder which can be due to recent catheterization. Tiny subcentimeter fat filled umbilical hernia. No infla mmation at this location. Recent right hip replacement. Small hilar hernia. Impression: 1. Fluid within the colon with air-fluid levels. This can be seen in diarrhea. 2. No dilated loops of large or small bowel. 3. Cyst within the pancreatic head. Would follow-up with CT in 6 months. 4. Question of slight thickening within the duodenum. Correlate for duodenitis. 5. Question of slight hydronephrosis left kidney. This could be followed with ultrasound.
[2017-02-08] MEDS ORDERED: Diltiazem IR 30 MG Tab PO ONE (15:30)
[2017-02-08] MEDS: Pravastatin 20 MG Tab PO SCH (21:39)
[2017-02-09] MEDS ORDERED: oxyCODONE 5 MG Tab PO PRN (09:29)
[2017-02-09] MEDS ORDERED: Ibuprofen 400 MG Tab PO PRN (09:30)
[2017-02-09] MEDS: Ondansetron 4 MG/2 ML SDV IVPUSH PRN ×2 (09:37→18:02)
[2017-02-09] MEDS: Psyllium Husk Powder Sugar Free 3.4 GM Packet PO SCH (10:18)
[2017-02-09] MEDS: Polyethylene Glycol 3350 Powder 17 GM Packet PO SCH (10:18)
[2017-02-09] MEDS: Aspirin 325 MG Tab.EC PO SCH ×2 (10:19→21:31)
[2017-02-09] MEDS: Gabapentin 100 MG Cap PO SCH ×2 (10:19→21:31)
[2017-02-09] MEDS: Losartan 50 MG Tab PO SCH (10:20)
[2017-02-09] MEDS: Acetaminophen 325 MG Tab PO PRN ×2 (10:47→17:53)
--- NOTE | 2017-02-09 14:47 | PCM.PN ---
- General Info Date of Service: 02/09/17 Functional Status: Reports: Pain Controlled - Review of Systems General: Reports: Weakness Gastrointestinal: Reports: Nausea, Vomiting Systems Review Comment:: no acute events overnight but somnolent this morning. Still having some nausea this morning but this has improved as the day has gone on. Still requiring a small amount of supplemental oxygen. No report of abdominal pain today area heart rate has been stable after the single dose of diltiazem yesterday. No evidence for infection that I can find. - Patient Data Vitals - Most Recent: Last Vital Signs Temp 36.2 C 02/09/17 10:52 Pulse 84 02/09/17 10:52 Resp 16 02/09/17 10:52 BP 127/71 02/09/17 10:52 Pulse Ox 98 02/09/17 12:25 Weight - Most Recent: 64.864 kg I&O - Last 24 Hours: Intake & Output 02/08/17 02/09/17 02/09/17 22:59 06:59 14:59 Intake Total 200 Output Total 300 200 Balance -300 200 -200 Lab Results Last 24 Hours: Laboratory Results - last 24 hr 02/09/17 02/09/17 02/09/17 Range/Units 04:45 04:45 10:30 WBC 10.2 (4.5-11.0) K/uL RBC 3.33 (3.30-5.50) M/uL Hgb 11.1 L (12.0-15.0) g/dL Hct 31.9 L (36.0-48.0) % MCV 96 (80-98) fL MCH 33 H (27-31) pg MCHC 35 (32-36) % Plt Count 200 (150-400) K/uL Sodium 136 L (140-148) mmol/L Potassium 3.8 (3.6-5.2) mmol/L Chloride 101 (100-108) mmol/L Carbon Dioxide 28 (21-32) mmol/L Anion Gap 10.8 (5.0-14.0) mmol/L BUN 13 D (7-18) mg/dL Creatinine 0.7 (0.6-1.0) mg/dL Est Cr Clr Drug Dosing 55.35 mL/min Estimated GFR (MDRD) > 60 (>60) Glucose 98 (74-106) mg/dL Calcium 7.9 L (8.5-10.1) mg/dL Urine Color Yellow Urine Appearance Clear Urine pH 6.0 (4.5-8.0) Ur Specific Tiff 1.015 (1.008-1.030) Urine Protein Negative (NEGATIVE) mg/dL Urine Glucose (UA) Normal (NEGATIVE) mg/dL Urine Ketones 50 H (NEGATIVE) mg/dL Urine Occult Blood Moderate (NEGATIVE) Urine Nitrite Negative (NEGATIVE) Urine Bilirubin Negative (NEGATIVE) Urine Urobilinogen Normal (NORMAL) mg/dL Ur Leukocyte Esterase Negative (NEGATIVE) Urine RBC 10-20 H (0-5) Urine WBC 0-5 (0-5) Ur Epithelial Cells Rare Amorphous Sediment Not seen Urine Bacteria Not seen Urine Mucus Not seen Med Orders - Current: Current Medications Acetaminophen (Tylenol) 650 mg PO Q4H PRN PRN Reason: Pain/Fever Last Admin: 02/09/17 10:47 Dose: 650 mg Al Hydroxide/Mg Hydroxide (Mag-Al Plus) 30 ml PO Q4H PRN PRN Reason: Constipation Albuterol (Proventil Neb Soln) 2.5 mg NEB Q4H PRN PRN Reason: Shortness Of Breath/wheezing Aspirin (Ecotrin) 325 mg PO BID [facility] Last Admin: 02/09/17 10:19 Dose: 325 mg Bisacodyl (Dulcolax) 10 mg PO DAILY PRN PRN Reason: Constipation Last Admin: 02/06/17 06:29 Dose: 10 mg Docusate Sodium (Colace) 100 mg PO BID PRN PRN Reason: Constipation Gabapentin (Neurontin) 100 mg PO BID [facility] Last Admin: 02/09/17 10:19 Dose: 100 mg Ibuprofen (Motrin) 400 mg PO Q4H PRN PRN Reason: Pain/Fever Last Admin: 02/09/17 13:06 Dose: 400 mg Losartan Potassium (Cozaar) 50 mg PO DAILY [facility] Last Admin: 02/09/17 10:20 Dose: 50 mg Magnesium Hydroxide (Milk Of Magnesia) 30 ml PO Q12H PRN PRN Reason: Constipation Ondansetron HCl (Zofran) 4 mg IVPUSH Q6H PRN PRN Reason: Nausea/Vomiting Last Admin: 02/09/17 09:37 Dose: 4 mg Polyethylene Glycol (Miralax) 51 gm PO DAILY [facility] Last Admin: 02/09/17 10:18 Dose: Not Given Psyllium Husk (Metamucil Sugar Free) 1 packet PO DAILY [facility] Last Admin: 02/09/17 10:18 Dose: Not Given Sodium Chloride (Saline Flush) 10 ml FLUSH ASDIRECTED PRN PRN Reason: Keep Vein Open Discontinued Medications Acetaminophen (Tylenol) 650 mg PO Q4H PRN PRN Reason: Pain (Mild 1-3)/fever Last Admin: 02/04/17 09:26 Dose: 650 mg Alprazolam (Xanax) 0.25 mg PO BID PRN PRN Reason: Anxiety Aspirin (Halfprin) 81 mg PO DAILY [facility] Last Admin: 02/05/17 09:53 Dose: Not Given Bupivacaine HCl/Epinephrine Bitart (Marcaine 0.5%/Epinephrine 1:200,000) Confirm Administered Dose 50 ml .ROUTE .STK-MED ONE Stop: 02/05/17 13:01 Bupivacaine HCl/Epinephrine Bitart (Marcaine 0.5%/Epinephrine 1:200,000) 30 ml INJECT .STK-MED ONE Stop: 02/05/17 12:39 Last Admin: 02/05/17 12:38 Dose: 30 ml Diazepam (Valium) 5 mg IVPUSH Q6H PRN PRN Reason: Spasms Diltiazem HCl (Cardizem) 30 mg PO STAT ONE Stop: 02/07/17 04:39 Last Admin: 02/07/17 04:47 Dose: 30 mg Diltiazem HCl (Cardizem) Confirm Administered Dose 30 mg .ROUTE .STK-MED ONE Stop: 02/07/17 04:46 Last Admin: 02/07/17 05:01 Dose: Not Given Diltiazem HCl (Cardizem) 30 mg PO ONETIME ONE Stop: 02/08/17 15:31 Last Admin: 02/08/17 16:30 Dose: 30 mg Diphenhydramine HCl (Benadryl) 25 mg IVPUSH Q4H PRN PRN Reason: Itching Last Admin: 02/06/17 09:55 Dose: 25 mg Enoxaparin Sodium (Lovenox) 40 mg SUBCUT ONETIME ONE Stop: 02/04/17 10:01 Last Admin: 02/04/17 10:07 Dose: 40 mg Ephedrine Sulfate (Ephedrine Sulfate) Confirm Administered Dose 50 mg .ROUTE .STK-MED ONE Stop: 02/05/17 12:03 Fentanyl (Sublimaze) Confirm Administered Dose 100 mcg .ROUTE .STK-MED ONE Stop: 02/05/17 11:27 Fentanyl Citrate (Fentanyl In Ns 20 Mcg/Ml 30 Ml Thin Film Technician) 0 mcg IV ASDIRECTED PRN; Protocol PRN Reason: Pain Last Admin: 02/04/17 09:27 Dose: 600 mcg Furosemide (Lasix) 20 mg IVPUSH STAT ONE Stop: 02/07/17 04:39 Last Admin: 02/07/17 04:47 Dose: 20 mg Furosemide (Lasix) Confirm Administered Dose 20 mg .ROUTE .STK-MED ONE Stop: 02/07/17 04:46 Last Admin: 02/07/17 05:02 Dose: Not Given Gentamicin Sulfate (Gentamicin) Confirm Administered Dose 240 mg .ROUTE .STK- MED ONE Stop: 02/05/17 13:01 Hydromorphone HCl (Dilaudid) 0.5 mg IM ONETIME ONE Stop: 02/03/17 23:34 Last Admin: 02/03/17 23:37 Dose: 0.5 mg Lactated Ringer's (Ringers, Lactated) 1,000 mls @ 125 mls/hr IV ASDIRECTED [facility] Last Admin: 02/06/17 12:09 Dose: 125 mls/hr Clindamycin Phosphate 900 mg/ (Sodium Chloride) 106 mls @ 200 mls/hr IV ONCALL ONE Stop: 02/05/17 11:31 Last Admin: 02/05/17 11:18 Dose: 200 mls/hr Lactated Ringer's (Ringers, Lactated) Confirm Administered Dose 1,000 mls @ as directed .ROUTE .STK-MED ONE Stop: 02/05/17 12:47 Sodium Chloride (Normal Saline) 500 mls @ 500 mls/hr IV .BOLUS ONE Stop: 02/07/17 14:48 Last Admin: 02/07/17 13:40 Dose: 500 mls/hr Sodium Chloride (Normal Saline) 70 mls @ 3 mls/sec IV ASDIRECTED [facility] Stop: 02/09/17 12:16 Last Admin: 02/08/17 12:27 Dose: 3 mls/sec Iopamidol (Isovue-300 (61%)) 98 ml IV . DIRECTED PRN PRN Reason: RADIOLOGY EXAM Stop: 02/09/17 12:12 Last Admin: 02/08/17 12:27 Dose: 98 ml Ketorolac Tromethamine (Toradol) 15 mg IVPUSH Q8H PRN PRN Reason: Pain Stop: 02/10/17 13:26 Last Admin: 02/05/17 15:18 Dose: 15 mg Lorazepam (Ativan) 0.5 mg IVPUSH ONETIME ONE Stop: 02/08/17 11:31 Last Admin: 02/08/17 12:12 Dose: 0.5 mg Midazolam HCl (Versed 1 Mg/Ml) Confirm Administered Dose 2 mg .ROUTE .STK-MED ONE Stop: 02/05/17 11:27 Morphine Sulfate (Morphine) 2 mg IVPUSH Q2H PRN PRN Reason: Pain Last Admin: 02/05/17 14:51 Dose: 2 mg Naloxone HCl (Narcan) 0.4 mg IVPUSH Q2M PRN PRN Reason: Respiratory Distress Ondansetron HCl (Zofran) 4 mg IVPUSH ONETIME ONE Stop: 02/04/17 03:23 Last Admin: 02/04/17 03:25 Dose: 4 mg Ondansetron HCl (Zofran) 4 mg IVPUSH ONETIME ONE Stop: 02/04/17 04:30 Last Admin: 02/04/17 04:34 Dose: 4 mg Ondansetron HCl (Zofran) 4 mg IV Q4H PRN PRN Reason: Nausea/Vomiting Last Admin: 02/04/17 09:26 Dose: 4 mg Ondansetron HCl (Zofran) 8 mg IVPUSH Q4H PRN PRN Reason: Nausea/Vomiting Last Admin: 02/08/17 09:30 Dose: 4 mg Oxycodone HCl (Oxycodone) 5 mg PO Q4H PRN PRN Reason: Pain (moderate 4-6) Oxycodone HCl (Oxycodone) 5 mg PO Q4H PRN PRN Reason: Pain Oxycodone/Acetaminophen (Percocet 325-5 Mg) 2 tab PO Q4H PRN PRN Reason: Pain Last Admin: 02/06/17 06:29 Dose: 2 tab Oxycodone/Acetaminophen (Percocet 325-5 Mg) 1 tab PO Q4H PRN PRN Reason: Pain Polyethylene Glycol (Miralax) 17 gm PO DAILY [facility] Last Admin: 02/06/17 12:10 Dose: Not Given Potassium Chloride (Klor-Con M20) 40 meq PO ONETIME ONE Stop: 02/07/17 12:01 Last Admin: 02/07/17 13:31 Dose: 40 meq Povidone Iodine (Betadine 10% Soln) 1 ml TOP .STK-MED ONE Stop: 02/05/17 12:39 Last Admin: 02/05/17 12:38 Dose: 1 ml Povidone Iodine (Betadine 10% Soln) Confirm Administered Dose 1 ml .ROUTE .STK- MED ONE Stop: 02/05/17 13:01 Pravastatin Sodium (Pravachol) 10 mg PO BEDTIME [facility] Last Admin: 02/08/17 21:39 Dose: 10 mg Propofol (Diprivan 20 Ml) Confirm Administered Dose 200 mg .ROUTE .STK-MED ONE Stop: 02/05/17 11:26 Senna/Docusate Sodium (Senna Plus) 1 tab PO BID PRN PRN Reason: Constipation Last Admin: 02/05/17 20:50 Dose: 1 tab Senna/Docusate Sodium (Senna Plus) 1 tab PO BID [facility] Last Admin: 02/08/17 10:53 Dose: Not Given Sodium Chloride (Saline Flush) 10 ml FLUSH ONETIME PRN PRN Reason: per radiology protocol Stop: 02/09/17 12:12 Last Admin: 02/08/17 12:27 Dose: 10 ml Tramadol HCl (Ultram) 100 mg PO Q6H PRN PRN Reason: Pain Tramadol HCl (Ultram) 50 mg PO Q6H PRN PRN Reason: Pain (moderate 4-6) Last Admin: 02/08/17 21:40 Dose: 50 mg Zolpidem Tartrate (Ambien) 5 mg PO BEDTIME PRN PRN Reason: Sleep - Exam Quality Assessment: Supplemental Oxygen General: Alert, Oriented, Cooperative, No Acute Distress Neck: Supple Lungs: Clear to Auscultation, Normal Respiratory Effort, Decreased Breath Sounds (mild right lung base) Cardiovascular: Regular Rate, Regular Rhythm, Murmurs GI/Abdominal Exam: Normal Bowel Sounds, Soft, Non-Tender, No Distention Extremities: No Pedal Edema. No: Increased Warmth Peripheral Pulses: 1+: Dorsalis Pedis (L), Dorsalis Pedis (R) Skin: Warm, Dry Psy/Mental Status: Alert, Normal Affect - Problem List Review Problem List Initiated/Reviewed/Updated: Yes - My Orders Last 24 Hours: My Active Orders 02/09/17 09:29 Acetaminophen [Tylenol] 650 mg PO Q4H PRN 02/09/17 09:30 Ibuprofen [Motrin] 400 mg PO Q4H PRN Ondansetron [Zofran] 4 mg IVPUSH Q6H PRN 02/09/17 14:45 Discontinue Telemetry Monitoring [Cardiac Monitoring Discontinue] [RC] Click to Edit 02/09/17 Dinner Full Liquid Diet [DIET] 02/10/17 05:00 BASIC METABOLIC PANEL,BMP [CHEM] Timed CBC W/O DIFF,HEMOGRAM [HEME] Timed (1) - Plan Plan:: ASSESSMENT AND PLAN RIGHT HIP FRACTURE - fracture secondary to accidental injury. Surgical intervention with hemiarthroplasty completed 02/05. Postop course complicated by oversedation and volume overload and now abdominal pain. Physical therapy has been limited because of medical issues. -postop cares per surgical team -twice a day aspirin for DVT prophylaxis -Weightbearing as tolerated -Physical therapy Periumbilical abdominal pain - resolved today and nausea is improving. I wonder if this was related to pain medications. -Pain control -Nausea control -full liquids Paroxysmal atrial fibrillation with rapid ventricular response - probably secondary to volume overload and responded to oral diltiazem again yesterday. Heart rate is back to normal today. -discontinue Telemetry -Low-dose diltiazem -Supplement oxygen CHRONIC CONSTIPATION - has been tending to be closer to diarrhearather than constipation. -Continue outpatient medical regimen MAINTENANCE ISSUES -DVT prophylaxis; SCUDs and twice daily aspirin -GI prophylaxis; not indicated -Valles catheter; removed 02/07 -Nutrition; regular diet DISPOSITION - anticipate discharge to care home after the hospital stay, likely early next week Killian Shearer M.D.
[2017-02-10] MEDS: Psyllium Husk Powder Sugar Free 3.4 GM Packet PO SCH (09:15)
[2017-02-10] MEDS: Polyethylene Glycol 3350 Powder 17 GM Packet PO SCH (09:15)
[2017-02-10] MEDS: Ondansetron 4 MG/2 ML SDV IVPUSH PRN ×2 (09:29→16:42)
[2017-02-10] MEDS: Losartan 50 MG Tab PO SCH (10:22)
[2017-02-10] MEDS: Aspirin 325 MG Tab.EC PO SCH ×2 (10:23→21:12)
[2017-02-10] MEDS: Gabapentin 100 MG Cap PO SCH ×2 (10:23→21:12)
[2017-02-10] MEDS: Acetaminophen 325 MG Tab PO PRN (14:00)
--- NOTE | 2017-02-10 17:13 | PCM.PN ---
- General Info Date of Service: 02/10/17 Functional Status: Reports: Pain Controlled, Ambulating - Review of Systems General: Reports: Weakness Gastrointestinal: Reports: Nausea Neurological: Reports: Dizziness Systems Review Comment:: No acute events overnight. She continues to have difficulty with weakness, dizziness and nausea. Dizziness and nausea seem worse when she is sitting up. Dizziness described as a wooziness or lightheadedness rather than spinning. She is not having any fevers. Heart rate and blood pressure have been stable. She has not had any vomiting today and has been able to keep down some liquids. Head CT was unremarkable. No significant pain issues. She is able to walk to the bathroom and back. - Patient Data Vitals - Most Recent: Last Vital Signs Temp 36.4 C 02/10/17 14:40 Pulse 77 02/10/17 14:40 Resp 18 02/10/17 14:40 BP 133/72 02/10/17 14:40 Pulse Ox 96 02/10/17 14:40 Weight - Most Recent: 64.864 kg I&O - Last 24 Hours: Intake & Output 02/10/17 02/10/17 02/10/17 06:59 14:59 22:59 Output Total 400 400 Balance -400 -400 Lab Results Last 24 Hours: Laboratory Results - last 24 hr 02/10/17 02/10/17 Range/Units 05:22 05:22 WBC 9.3 (4.5-11.0) K/uL RBC 3.29 L (3.30-5.50) M/uL Hgb 10.6 L (12.0-15.0) g/dL Hct 31.2 L (36.0-48.0) % MCV 95 (80-98) fL MCH 32 H (27-31) pg MCHC 34 (32-36) % Plt Count 259 (150-400) K/uL Sodium 137 L (140-148) mmol/L Potassium 3.4 L (3.6-5.2) mmol/L Chloride 103 (100-108) mmol/L Carbon Dioxide 28 (21-32) mmol/L Anion Gap 9.4 (5.0-14.0) mmol/L BUN 15 (7-18) mg/dL Creatinine 0.7 (0.6-1.0) mg/dL Est Cr Clr Drug Dosing 55.35 mL/min Estimated GFR (MDRD) > 60 (>60) Glucose 91 (74-106) mg/dL Calcium 8.0 L (8.5-10.1) mg/dL Med Orders - Current: Current Medications Acetaminophen (Tylenol) 650 mg PO Q4H PRN PRN Reason: Pain/Fever Last Admin: 02/10/17 14:00 Dose: 650 mg Al Hydroxide/Mg Hydroxide (Mag-Al Plus) 30 ml PO Q4H PRN PRN Reason: Constipation Albuterol (Proventil Neb Soln) 2.5 mg NEB Q4H PRN PRN Reason: Shortness Of Breath/wheezing Aspirin (Ecotrin) 325 mg PO BID [facility] Last Admin: 02/10/17 10:23 Dose: 325 mg Bisacodyl (Dulcolax) 10 mg PO DAILY PRN PRN Reason: Constipation Last Admin: 02/06/17 06:29 Dose: 10 mg Docusate Sodium (Colace) 100 mg PO BID PRN PRN Reason: Constipation Gabapentin (Neurontin) 100 mg PO BID [facility] Last Admin: 02/10/17 10:23 Dose: 100 mg Potassium Chloride 20 meq/Lidocaine HCl 2 ml/ Sodium Chloride 112 mls @ 50 mls/ hr IV Q2H [facility] Stop: 02/10/17 21:14 Ibuprofen (Motrin) 400 mg PO Q4H PRN PRN Reason: Pain/Fever Last Admin: 02/09/17 13:06 Dose: 400 mg Losartan Potassium (Cozaar) 50 mg PO DAILY [facility] Last Admin: 02/10/17 10:22 Dose: 50 mg Magnesium Hydroxide (Milk Of Magnesia) 30 ml PO Q12H PRN PRN Reason: Constipation Ondansetron HCl (Zofran) 4 mg IVPUSH Q6H PRN PRN Reason: Nausea/Vomiting Last Admin: 02/10/17 16:42 Dose: 2 mg Polyethylene Glycol (Miralax) 51 gm PO DAILY [facility] Last Admin: 02/10/17 09:15 Dose: Not Given Psyllium Husk (Metamucil Sugar Free) 1 packet PO DAILY [facility] Last Admin: 02/10/17 09:15 Dose: Not Given Sodium Chloride (Saline Flush) 10 ml FLUSH ASDIRECTED PRN PRN Reason: Keep Vein Open Discontinued Medications Acetaminophen (Tylenol) 650 mg PO Q4H PRN PRN Reason: Pain (Mild 1-3)/fever Last Admin: 02/04/17 09:26 Dose: 650 mg Alprazolam (Xanax) 0.25 mg PO BID PRN PRN Reason: Anxiety Aspirin (Halfprin) 81 mg PO DAILY [facility] Last Admin: 02/05/17 09:53 Dose: Not Given Bupivacaine HCl/Epinephrine Bitart (Marcaine 0.5%/Epinephrine 1:200,000) Confirm Administered Dose 50 ml .ROUTE .STK-MED ONE Stop: 02/05/17 13:01 Bupivacaine HCl/Epinephrine Bitart (Marcaine 0.5%/Epinephrine 1:200,000) 30 ml INJECT .STK-MED ONE Stop: 02/05/17 12:39 Last Admin: 02/05/17 12:38 Dose: 30 ml Diazepam (Valium) 5 mg IVPUSH Q6H PRN PRN Reason: Spasms Diltiazem HCl (Cardizem) 30 mg PO STAT ONE Stop: 02/07/17 04:39 Last Admin: 02/07/17 04:47 Dose: 30 mg Diltiazem HCl (Cardizem) Confirm Administered Dose 30 mg .ROUTE .STK-MED ONE Stop: 02/07/17 04:46 Last Admin: 02/07/17 05:01 Dose: Not Given Diltiazem HCl (Cardizem) 30 mg PO ONETIME ONE Stop: 02/08/17 15:31 Last Admin: 02/08/17 16:30 Dose: 30 mg Diphenhydramine HCl (Benadryl) 25 mg IVPUSH Q4H PRN PRN Reason: Itching Last Admin: 02/06/17 09:55 Dose: 25 mg Enoxaparin Sodium (Lovenox) 40 mg SUBCUT ONETIME ONE Stop: 02/04/17 10:01 Last Admin: 02/04/17 10:07 Dose: 40 mg Ephedrine Sulfate (Ephedrine Sulfate) Confirm Administered Dose 50 mg .ROUTE .STK-MED ONE Stop: 02/05/17 12:03 Fentanyl (Sublimaze) Confirm Administered Dose 100 mcg .ROUTE .STK-MED ONE Stop: 02/05/17 11:27 Fentanyl Citrate (Fentanyl In Ns 20 Mcg/Ml 30 Ml Product Safety Technical Assistant) 0 mcg IV ASDIRECTED PRN; Protocol PRN Reason: Pain Last Admin: 02/04/17 09:27 Dose: 600 mcg Furosemide (Lasix) 20 mg IVPUSH STAT ONE Stop: 02/07/17 04:39 Last Admin: 02/07/17 04:47 Dose: 20 mg Furosemide (Lasix) Confirm Administered Dose 20 mg .ROUTE .STK-MED ONE Stop: 02/07/17 04:46 Last Admin: 02/07/17 05:02 Dose: Not Given Gentamicin Sulfate (Gentamicin) Confirm Administered Dose 240 mg .ROUTE .STK- MED ONE Stop: 02/05/17 13:01 Hydromorphone HCl (Dilaudid) 0.5 mg IM ONETIME ONE Stop: 02/03/17 23:34 Last Admin: 02/03/17 23:37 Dose: 0.5 mg Lactated Ringer's (Ringers, Lactated) 1,000 mls @ 125 mls/hr IV ASDIRECTED [facility] Last Admin: 02/06/17 12:09 Dose: 125 mls/hr Clindamycin Phosphate 900 mg/ (Sodium Chloride) 106 mls @ 200 mls/hr IV ONCALL ONE Stop: 02/05/17 11:31 Last Admin: 02/05/17 11:18 Dose: 200 mls/hr Lactated Ringer's (Ringers, Lactated) Confirm Administered Dose 1,000 mls @ as directed .ROUTE .STK-MED ONE Stop: 02/05/17 12:47 Sodium Chloride (Normal Saline) 500 mls @ 500 mls/hr IV .BOLUS ONE Stop: 02/07/17 14:48 Last Admin: 02/07/17 13:40 Dose: 500 mls/hr Sodium Chloride (Normal Saline) 70 mls @ 3 mls/sec IV ASDIRECTED [facility] Stop: 02/09/17 12:16 Last Admin: 02/08/17 12:27 Dose: 3 mls/sec Iopamidol (Isovue-300 (61%)) 98 ml IV . DIRECTED PRN PRN Reason: RADIOLOGY EXAM Stop: 02/09/17 12:12 Last Admin: 02/08/17 12:27 Dose: 98 ml Ketorolac Tromethamine (Toradol) 15 mg IVPUSH Q8H PRN PRN Reason: Pain Stop: 02/10/17 13:26 Last Admin: 02/05/17 15:18 Dose: 15 mg Lorazepam (Ativan) 0.5 mg IVPUSH ONETIME ONE Stop: 02/08/17 11:31 Last Admin: 02/08/17 12:12 Dose: 0.5 mg Midazolam HCl (Versed 1 Mg/Ml) Confirm Administered Dose 2 mg .ROUTE .STK-MED ONE Stop: 02/05/17 11:27 Morphine Sulfate (Morphine) 2 mg IVPUSH Q2H PRN PRN Reason: Pain Last Admin: 02/05/17 14:51 Dose: 2 mg Naloxone HCl (Narcan) 0.4 mg IVPUSH Q2M PRN PRN Reason: Respiratory Distress Ondansetron HCl (Zofran) 4 mg IVPUSH ONETIME ONE Stop: 02/04/17 03:23 Last Admin: 02/04/17 03:25 Dose: 4 mg Ondansetron HCl (Zofran) 4 mg IVPUSH ONETIME ONE Stop: 02/04/17 04:30 Last Admin: 02/04/17 04:34 Dose: 4 mg Ondansetron HCl (Zofran) 4 mg IV Q4H PRN PRN Reason: Nausea/Vomiting Last Admin: 02/04/17 09:26 Dose: 4 mg Ondansetron HCl (Zofran) 8 mg IVPUSH Q4H PRN PRN Reason: Nausea/Vomiting Last Admin: 02/08/17 09:30 Dose: 4 mg Oxycodone HCl (Oxycodone) 5 mg PO Q4H PRN PRN Reason: Pain (moderate 4-6) Oxycodone HCl (Oxycodone) 5 mg PO Q4H PRN PRN Reason: Pain Oxycodone/Acetaminophen (Percocet 325-5 Mg) 2 tab PO Q4H PRN PRN Reason: Pain Last Admin: 02/06/17 06:29 Dose: 2 tab Oxycodone/Acetaminophen (Percocet 325-5 Mg) 1 tab PO Q4H PRN PRN Reason: Pain Polyethylene Glycol (Miralax) 17 gm PO DAILY [facility] Last Admin: 02/06/17 12:10 Dose: Not Given Potassium Chloride (Klor-Con M20) 40 meq PO ONETIME ONE Stop: 02/07/17 12:01 Last Admin: 02/07/17 13:31 Dose: 40 meq Povidone Iodine (Betadine 10% Soln) 1 ml TOP .STK-MED ONE Stop: 02/05/17 12:39 Last Admin: 02/05/17 12:38 Dose: 1 ml Povidone Iodine (Betadine 10% Soln) Confirm Administered Dose 1 ml .ROUTE .STK- MED ONE Stop: 02/05/17 13:01 Pravastatin Sodium (Pravachol) 10 mg PO BEDTIME [facility] Last Admin: 02/08/17 21:39 Dose: 10 mg Propofol (Diprivan 20 Ml) Confirm Administered Dose 200 mg .ROUTE .STK-MED ONE Stop: 02/05/17 11:26 Senna/Docusate Sodium (Senna Plus) 1 tab PO BID PRN PRN Reason: Constipation Last Admin: 02/05/17 20:50 Dose: 1 tab Senna/Docusate Sodium (Senna Plus) 1 tab PO BID [facility] Last Admin: 02/08/17 10:53 Dose: Not Given Sodium Chloride (Saline Flush) 10 ml FLUSH ONETIME PRN PRN Reason: per radiology protocol Stop: 02/09/17 12:12 Last Admin: 02/08/17 12:27 Dose: 10 ml Tramadol HCl (Ultram) 100 mg PO Q6H PRN PRN Reason: Pain Tramadol HCl (Ultram) 50 mg PO Q6H PRN PRN Reason: Pain (moderate 4-6) Last Admin: 02/08/17 21:40 Dose: 50 mg Zolpidem Tartrate (Ambien) 5 mg PO BEDTIME PRN PRN Reason: Sleep - Exam Quality Assessment: Supplemental Oxygen General: Alert, Oriented, Cooperative, No Acute Distress, Lethargic HEENT: No: Scleral Icterus Neck: Supple Lungs: Normal Respiratory Effort Cardiovascular: Regular Rate, Regular Rhythm GI/Abdominal Exam: Soft, No Distention Extremities: No Pedal Edema Skin: Warm, Dry Psy/Mental Status: Alert, Normal Affect, Other (Sleepy) - Problem List Review Problem List Initiated/Reviewed/Updated: Yes - My Orders Last 24 Hours: My Active Orders 02/09/17 Dinner Full Liquid Diet [DIET] 02/10/17 08:33 Dietary Supplements [RC] TIDAC 02/10/17 13:01 Head wo Cont [CT] Routine 02/10/17 17:15 Potassium Chloride 20 MEQ,Lidocaine 1% 2 ML IN 100ML NS @ 50 MLS/HR Potassium Chloride 20 meq Lidocaine 1% [Xylocaine 1%] 2 ml Sodium Chloride 0.9% [Normal Saline] 100 ml IV Q2H 02/11/17 05:00 BASIC METABOLIC PANEL,BMP [CHEM] Timed HGB [HEMOGLOBIN] [HEME] Timed - Plan Plan:: ASSESSMENT AND PLAN RIGHT HIP FRACTURE - fracture secondary to accidental injury. Surgical intervention with hemiarthroplasty completed 02/05. Postop course complicated by oversedation and volume overload and now abdominal pain. Physical therapy has been limited because of medical issues. Seems to be getting around okay and is able to ambulate to get to the bathroom and back. -Pain control with acetaminophen and ibuprofen -postop cares per surgical team -twice a day aspirin for DVT prophylaxis -Weightbearing as tolerated -Physical therapy Persistent nausea and dizziness - pain resolved today and nausea is improving. I wonder if this was related to pain medications. Clinically looks even better today though she is not back to baseline as of yet. No evidence for intracranial pathology. -Pain control -Nausea control -full liquids Paroxysmal atrial fibrillation with rapid ventricular response - probably secondary to volume overload and responded to oral diltiazem again yesterday. Heart rate stable since second dose of diltiazem.. -Supplement oxygen as needed CHRONIC CONSTIPATION - has been tending to be closer to diarrhea rather than constipation. -Continue outpatient medical regimen MAINTENANCE ISSUES -DVT prophylaxis; SCUDs and twice daily aspirin -GI prophylaxis; not indicated -Valles catheter; removed 02/07 -Nutrition; regular diet DISPOSITION - anticipate discharge to alf after the hospital stay, likely early next week Killian Shearer M.D.
[2017-02-10] MEDS: Potassium Chloride 20 MEQ, Lidocaine 1% 2 ML in Sodium Chloride 0.9% 100 ML IV SCH ×2 (19:38→22:52)
[2017-02-11] MEDS: Aspirin 325 MG Tab.EC PO SCH ×2 (09:52→20:00)
[2017-02-11] MEDS: Losartan 50 MG Tab PO SCH (09:52)
[2017-02-11] MEDS: Gabapentin 100 MG Cap PO SCH ×2 (09:52→20:00)
[2017-02-11] MEDS: Polyethylene Glycol 3350 Powder 17 GM Packet PO SCH (09:53)
[2017-02-11] MEDS: Psyllium Husk Powder Sugar Free 3.4 GM Packet PO SCH (09:53)
--- NOTE | 2017-02-11 11:53 | PCM.PN ---
- General Info Date of Service: 02/11/17 Functional Status: Reports: Pain Controlled, Tolerating Diet, Ambulating - Review of Systems General: Reports: Weakness. Denies: Fever Pulmonary: Denies: Shortness of Breath Gastrointestinal: Denies: Abdominal Pain Musculoskeletal: Reports: Leg Pain (mild) Systems Review Comment:: No acute events overnight. Strength is a little bit better today and she has been up and walking. Nausea has improved and she's been able to eat some breakfast. Dizziness has essentially resolved at this point. Heart rate and blood pressure have been stable. Stools remain on the loose side but frequency is minimal. - Patient Data Vitals - Most Recent: Last Vital Signs Temp 36.4 C 02/11/17 11:00 Pulse 69 02/11/17 11:00 Resp 18 02/11/17 11:00 BP 126/72 02/11/17 11:00 Pulse Ox 95 02/11/17 11:00 Weight - Most Recent: 64.864 kg I&O - Last 24 Hours: Intake & Output 02/10/17 02/11/17 02/11/17 22:59 06:59 14:59 Intake Total 120 1000 600 Output Total 400 1050 50 Balance -280 -50 550 Lab Results Last 24 Hours: Laboratory Results - last 24 hr 02/11/17 02/11/17 Range/Units 05:00 05:48 Hgb 10.1 L (12.0-15.0) g/dL Sodium 136 L (140-148) mmol/L Potassium 3.8 (3.6-5.2) mmol/L Chloride 103 (100-108) mmol/L Carbon Dioxide 27 (21-32) mmol/L Anion Gap 9.8 (5.0-14.0) mmol/L BUN 13 (7-18) mg/dL Creatinine 0.7 (0.6-1.0) mg/dL Est Cr Clr Drug Dosing 55.35 mL/min Estimated GFR (MDRD) > 60 (>60) Glucose 94 (74-106) mg/dL Calcium 7.9 L (8.5-10.1) mg/dL Med Orders - Current: Current Medications Acetaminophen (Tylenol) 650 mg PO Q4H PRN PRN Reason: Pain/Fever Last Admin: 02/10/17 14:00 Dose: 650 mg Al Hydroxide/Mg Hydroxide (Mag-Al Plus) 30 ml PO Q4H PRN PRN Reason: Constipation Albuterol (Proventil Neb Soln) 2.5 mg NEB Q4H PRN PRN Reason: Shortness Of Breath/wheezing Aspirin (Ecotrin) 325 mg PO BID [facility] Last Admin: 02/11/17 09:52 Dose: 325 mg Bisacodyl (Dulcolax) 10 mg PO DAILY PRN PRN Reason: Constipation Last Admin: 02/06/17 06:29 Dose: 10 mg Docusate Sodium (Colace) 100 mg PO BID PRN PRN Reason: Constipation Gabapentin (Neurontin) 100 mg PO BID [facility] Last Admin: 02/11/17 09:52 Dose: 100 mg Ibuprofen (Motrin) 400 mg PO Q4H PRN PRN Reason: Pain/Fever Last Admin: 02/09/17 13:06 Dose: 400 mg Losartan Potassium (Cozaar) 50 mg PO DAILY [facility] Last Admin: 02/11/17 09:52 Dose: 50 mg Magnesium Hydroxide (Milk Of Magnesia) 30 ml PO Q12H PRN PRN Reason: Constipation Ondansetron HCl (Zofran) 4 mg IVPUSH Q6H PRN PRN Reason: Nausea/Vomiting Last Admin: 02/10/17 16:42 Dose: 2 mg Polyethylene Glycol (Miralax) 51 gm PO DAILY [facility] Last Admin: 02/11/17 09:53 Dose: 51 gm Psyllium Husk (Metamucil Sugar Free) 1 packet PO DAILY [facility] Last Admin: 02/11/17 09:53 Dose: 1 packet Sodium Chloride (Saline Flush) 10 ml FLUSH ASDIRECTED PRN PRN Reason: Keep Vein Open Discontinued Medications Acetaminophen (Tylenol) 650 mg PO Q4H PRN PRN Reason: Pain (Mild 1-3)/fever Last Admin: 02/04/17 09:26 Dose: 650 mg Alprazolam (Xanax) 0.25 mg PO BID PRN PRN Reason: Anxiety Aspirin (Halfprin) 81 mg PO DAILY [facility] Last Admin: 02/05/17 09:53 Dose: Not Given Bupivacaine HCl/Epinephrine Bitart (Marcaine 0.5%/Epinephrine 1:200,000) Confirm Administered Dose 50 ml .ROUTE .STK-MED ONE Stop: 02/05/17 13:01 Bupivacaine HCl/Epinephrine Bitart (Marcaine 0.5%/Epinephrine 1:200,000) 30 ml INJECT .STK-MED ONE Stop: 02/05/17 12:39 Last Admin: 02/05/17 12:38 Dose: 30 ml Diazepam (Valium) 5 mg IVPUSH Q6H PRN PRN Reason: Spasms Diltiazem HCl (Cardizem) 30 mg PO STAT ONE Stop: 02/07/17 04:39 Last Admin: 02/07/17 04:47 Dose: 30 mg Diltiazem HCl (Cardizem) Confirm Administered Dose 30 mg .ROUTE .STK-MED ONE Stop: 02/07/17 04:46 Last Admin: 02/07/17 05:01 Dose: Not Given Diltiazem HCl (Cardizem) 30 mg PO ONETIME ONE Stop: 02/08/17 15:31 Last Admin: 02/08/17 16:30 Dose: 30 mg Diphenhydramine HCl (Benadryl) 25 mg IVPUSH Q4H PRN PRN Reason: Itching Last Admin: 02/06/17 09:55 Dose: 25 mg Enoxaparin Sodium (Lovenox) 40 mg SUBCUT ONETIME ONE Stop: 02/04/17 10:01 Last Admin: 02/04/17 10:07 Dose: 40 mg Ephedrine Sulfate (Ephedrine Sulfate) Confirm Administered Dose 50 mg .ROUTE .STK-MED ONE Stop: 02/05/17 12:03 Fentanyl (Sublimaze) Confirm Administered Dose 100 mcg .ROUTE .ST-MED ONE Stop: 02/05/17 11:27 Fentanyl Citrate (Fentanyl In Ns 20 Mcg/Ml 30 Ml Software Writer) 0 mcg IV ASDIRECTED PRN; Protocol PRN Reason: Pain Last Admin: 02/04/17 09:27 Dose: 600 mcg Furosemide (Lasix) 20 mg IVPUSH STAT ONE Stop: 02/07/17 04:39 Last Admin: 02/07/17 04:47 Dose: 20 mg Furosemide (Lasix) Confirm Administered Dose 20 mg .ROUTE .STK-MED ONE Stop: 02/07/17 04:46 Last Admin: 02/07/17 05:02 Dose: Not Given Gentamicin Sulfate (Gentamicin) Confirm Administered Dose 240 mg .ROUTE .STK- MED ONE Stop: 02/05/17 13:01 Hydromorphone HCl (Dilaudid) 0.5 mg IM ONETIME ONE Stop: 02/03/17 23:34 Last Admin: 02/03/17 23:37 Dose: 0.5 mg Lactated Ringer's (Ringers, Lactated) 1,000 mls @ 125 mls/hr IV ASDIRECTED [facility] Last Admin: 02/06/17 12:09 Dose: 125 mls/hr Clindamycin Phosphate 900 mg/ (Sodium Chloride) 106 mls @ 200 mls/hr IV ONCALL ONE Stop: 02/05/17 11:31 Last Admin: 02/05/17 11:18 Dose: 200 mls/hr Lactated Ringer's (Ringers, Lactated) Confirm Administered Dose 1,000 mls @ as directed .ROUTE .STK-MED ONE Stop: 02/05/17 12:47 Sodium Chloride (Normal Saline) 500 mls @ 500 mls/hr IV .BOLUS ONE Stop: 02/07/17 14:48 Last Admin: 02/07/17 13:40 Dose: 500 mls/hr Sodium Chloride (Normal Saline) 70 mls @ 3 mls/sec IV ASDIRECTED [facility] Stop: 02/09/17 12:16 Last Admin: 02/08/17 12:27 Dose: 3 mls/sec Potassium Chloride 20 meq/Lidocaine HCl 2 ml/ Sodium Chloride 112 mls @ 50 mls/ hr IV Q2H [facility] Stop: 02/10/17 21:14 Last Admin: 02/10/17 22:52 Dose: 50 mls/hr Potassium Chloride (Kcl 20 Meq In Water 100 Ml) Confirm Administered Dose 200 mls @ as directed .ROUTE .STK-MED ONE Stop: 02/10/17 18:57 Last Admin: 02/10/17 19:33 Dose: 20 meq Iopamidol (Isovue-300 (61%)) 98 ml IV . DIRECTED PRN PRN Reason: RADIOLOGY EXAM Stop: 02/09/17 12:12 Last Admin: 02/08/17 12:27 Dose: 98 ml Ketorolac Tromethamine (Toradol) 15 mg IVPUSH Q8H PRN PRN Reason: Pain Stop: 02/10/17 13:26 Last Admin: 02/05/17 15:18 Dose: 15 mg Lidocaine HCl (Xylocaine-Mpf 1%) Confirm Administered Dose 5 ml .ROUTE .STK-MED ONE Stop: 02/10/17 18:58 Last Admin: 02/10/17 19:32 Dose: 5 ml Lorazepam (Ativan) 0.5 mg IVPUSH ONETIME ONE Stop: 02/08/17 11:31 Last Admin: 02/08/17 12:12 Dose: 0.5 mg Midazolam HCl (Versed 1 Mg/Ml) Confirm Administered Dose 2 mg .ROUTE .STK-MED ONE Stop: 02/05/17 11:27 Morphine Sulfate (Morphine) 2 mg IVPUSH Q2H PRN PRN Reason: Pain Last Admin: 02/05/17 14:51 Dose: 2 mg Naloxone HCl (Narcan) 0.4 mg IVPUSH Q2M PRN PRN Reason: Respiratory Distress Ondansetron HCl (Zofran) 4 mg IVPUSH ONETIME ONE Stop: 02/04/17 03:23 Last Admin: 02/04/17 03:25 Dose: 4 mg Ondansetron HCl (Zofran) 4 mg IVPUSH ONETIME ONE Stop: 02/04/17 04:30 Last Admin: 02/04/17 04:34 Dose: 4 mg Ondansetron HCl (Zofran) 4 mg IV Q4H PRN PRN Reason: Nausea/Vomiting Last Admin: 02/04/17 09:26 Dose: 4 mg Ondansetron HCl (Zofran) 8 mg IVPUSH Q4H PRN PRN Reason: Nausea/Vomiting Last Admin: 02/08/17 09:30 Dose: 4 mg Oxycodone HCl (Oxycodone) 5 mg PO Q4H PRN PRN Reason: Pain (moderate 4-6) Oxycodone HCl (Oxycodone) 5 mg PO Q4H PRN PRN Reason: Pain Oxycodone/Acetaminophen (Percocet 325-5 Mg) 2 tab PO Q4H PRN PRN Reason: Pain Last Admin: 02/06/17 06:29 Dose: 2 tab Oxycodone/Acetaminophen (Percocet 325-5 Mg) 1 tab PO Q4H PRN PRN Reason: Pain Polyethylene Glycol (Miralax) 17 gm PO DAILY [facility] Last Admin: 02/06/17 12:10 Dose: Not Given Potassium Chloride (Klor-Con M20) 40 meq PO ONETIME ONE Stop: 02/07/17 12:01 Last Admin: 02/07/17 13:31 Dose: 40 meq Povidone Iodine (Betadine 10% Soln) 1 ml TOP .STK-MED ONE Stop: 02/05/17 12:39 Last Admin: 02/05/17 12:38 Dose: 1 ml Povidone Iodine (Betadine 10% Soln) Confirm Administered Dose 1 ml .ROUTE .STK- MED ONE Stop: 02/05/17 13:01 Pravastatin Sodium (Pravachol) 10 mg PO BEDTIME [facility] Last Admin: 02/08/17 21:39 Dose: 10 mg Propofol (Diprivan 20 Ml) Confirm Administered Dose 200 mg .ROUTE .STK-MED ONE Stop: 02/05/17 11:26 Senna/Docusate Sodium (Senna Plus) 1 tab PO BID PRN PRN Reason: Constipation Last Admin: 02/05/17 20:50 Dose: 1 tab Senna/Docusate Sodium (Senna Plus) 1 tab PO BID [facility] Last Admin: 02/08/17 10:53 Dose: Not Given Sodium Chloride (Saline Flush) 10 ml FLUSH ONETIME PRN PRN Reason: per radiology protocol Stop: 02/09/17 12:12 Last Admin: 02/08/17 12:27 Dose: 10 ml Tramadol HCl (Ultram) 100 mg PO Q6H PRN PRN Reason: Pain Tramadol HCl (Ultram) 50 mg PO Q6H PRN PRN Reason: Pain (moderate 4-6) Last Admin: 02/08/17 21:40 Dose: 50 mg Zolpidem Tartrate (Ambien) 5 mg PO BEDTIME PRN PRN Reason: Sleep - Exam Quality Assessment: No: Supplemental Oxygen General: Alert, Oriented, Cooperative, No Acute Distress Neck: Supple Lungs: Clear to Auscultation, Normal Respiratory Effort Cardiovascular: Regular Rate, Regular Rhythm GI/Abdominal Exam: Normal Bowel Sounds, Soft, Non-Tender, No Distention Extremities: Normal Inspection, No Pedal Edema. No: Increased Warmth Skin: Warm, Dry Psy/Mental Status: Alert, Normal Affect - Problem List Review Problem List Initiated/Reviewed/Updated: Yes - My Orders Last 24 Hours: My Active Orders 02/10/17 13:01 Head wo Cont [CT] Routine 02/11/17 Lunch Regular Diet [DIET] - Plan Plan:: ASSESSMENT AND PLAN RIGHT HIP FRACTURE - fracture secondary to accidental injury. Surgical intervention with hemiarthroplasty completed 02/05. Postop course complicated by oversedation and volume overload and now abdominal pain. Physical therapy has been limited because of medical issues. Patient has had significant clinical improvement over the past 3 days after narcotic medications were discontinued. -Pain control with acetaminophen and ibuprofen -postop cares per surgical team -twice a day aspirin for DVT prophylaxis -Weightbearing as tolerated -Physical therapy Persistent nausea and dizziness - pain resolved and nausea has essentially resolved as well. I suspect this was all related to narcotics. -Pain control -Nausea control -Advance diet Paroxysmal atrial fibrillation with rapid ventricular response - 2 episodes, probably both related to mild volume overload. Both have resolved after single dose of diltiazem. -Supplement oxygen as needed CHRONIC CONSTIPATION - has been tending to be closer to diarrhea rather than constipation. -Continue outpatient medical regimen MAINTENANCE ISSUES -DVT prophylaxis; SCUDs and twice daily aspirin -GI prophylaxis; not indicated -Valles catheter; removed 02/07 -Nutrition; regular diet DISPOSITION - anticipate discharge to [facility] and [place] after the hospital stay, likely early this week Killian Shearer M.D.
[2017-02-11] MEDS ORDERED: Polyethylene Glycol 3350 Powder 17 GM Packet PO PRN (12:15)
[2017-02-12] MEDS: Acetaminophen 325 MG Tab PO PRN
[2017-02-12] MEDS: Gabapentin 100 MG Cap PO SCH ×2 (08:03→21:01)
[2017-02-12] MEDS: Losartan 50 MG Tab PO SCH (08:04)
[2017-02-12] MEDS: Aspirin 325 MG Tab.EC PO SCH ×2 (08:04→21:01)
[2017-02-12] MEDS: Psyllium Husk Powder Sugar Free 3.4 GM Packet PO SCH (08:13)
--- NOTE | 2017-02-12 15:58 | PCM.PN ---
- General Info Date of Service: 02/12/17 Functional Status: Reports: Pain Controlled, Tolerating Diet, Ambulating - Review of Systems General: Reports: No Symptoms Pulmonary: Reports: No Symptoms Cardiovascular: Reports: No Symptoms Gastrointestinal: Reports: No Symptoms Systems Review Comment:: Ms. Rogers has been stable since yesterday and has shown significant improvement over the past few days. She is much more alert and interactive, diet is slowly improving, and she has been up ambulating with assistance. Vital signs have been stable and she has remained afebrile. - Patient Data Vitals - Most Recent: Last Vital Signs Temp 97.6 F 02/12/17 15:16 Pulse 87 02/12/17 15:16 Resp 17 02/12/17 15:16 BP 113/65 02/12/17 15:16 Pulse Ox 95 02/12/17 15:16 Weight - Most Recent: 143 lb I&O - Last 24 Hours: Intake & Output 02/12/17 02/12/17 02/12/17 06:59 14:59 22:59 Intake Total 200 1300 237 Output Total 1050 450 Balance -850 850 237 Med Orders - Current: Current Medications Acetaminophen (Tylenol) 650 mg PO Q4H PRN PRN Reason: Pain/Fever Last Admin: 02/12/17 00:00 Dose: 650 mg Al Hydroxide/Mg Hydroxide (Mag-Al Plus) 30 ml PO Q4H PRN PRN Reason: Constipation Albuterol (Proventil Neb Soln) 2.5 mg NEB Q4H PRN PRN Reason: Shortness Of Breath/wheezing Aspirin (Ecotrin) 325 mg PO BID [facility] Last Admin: 02/12/17 08:04 Dose: 325 mg Bisacodyl (Dulcolax) 10 mg PO DAILY PRN PRN Reason: Constipation Last Admin: 02/06/17 06:29 Dose: 10 mg Docusate Sodium (Colace) 100 mg PO BID PRN PRN Reason: Constipation Gabapentin (Neurontin) 100 mg PO BID [facility] Last Admin: 02/12/17 08:03 Dose: 100 mg Losartan Potassium (Cozaar) 50 mg PO DAILY [facility] Last Admin: 02/12/17 08:04 Dose: 50 mg Magnesium Hydroxide (Milk Of Magnesia) 30 ml PO Q12H PRN PRN Reason: Constipation Ondansetron HCl (Zofran) 4 mg IVPUSH Q6H PRN PRN Reason: Nausea/Vomiting Last Admin: 02/10/17 16:42 Dose: 2 mg Polyethylene Glycol (Miralax) 51 gm PO DAILY PRN PRN Reason: Constipation Psyllium Husk (Metamucil Sugar Free) 1 packet PO DAILY [facility] Last Admin: 02/12/17 08:13 Dose: Not Given Sodium Chloride (Saline Flush) 10 ml FLUSH ASDIRECTED PRN PRN Reason: Keep Vein Open Discontinued Medications Acetaminophen (Tylenol) 650 mg PO Q4H PRN PRN Reason: Pain (Mild 1-3)/fever Last Admin: 02/04/17 09:26 Dose: 650 mg Alprazolam (Xanax) 0.25 mg PO BID PRN PRN Reason: Anxiety Aspirin (Halfprin) 81 mg PO DAILY [facility] Last Admin: 02/05/17 09:53 Dose: Not Given Bupivacaine HCl/Epinephrine Bitart (Marcaine 0.5%/Epinephrine 1:200,000) Confirm Administered Dose 50 ml .ROUTE .STK-MED ONE Stop: 02/05/17 13:01 Bupivacaine HCl/Epinephrine Bitart (Marcaine 0.5%/Epinephrine 1:200,000) 30 ml INJECT .STK-MED ONE Stop: 02/05/17 12:39 Last Admin: 02/05/17 12:38 Dose: 30 ml Diazepam (Valium) 5 mg IVPUSH Q6H PRN PRN Reason: Spasms Diltiazem HCl (Cardizem) 30 mg PO STAT ONE Stop: 02/07/17 04:39 Last Admin: 02/07/17 04:47 Dose: 30 mg Diltiazem HCl (Cardizem) Confirm Administered Dose 30 mg .ROUTE .STK-MED ONE Stop: 02/07/17 04:46 Last Admin: 02/07/17 05:01 Dose: Not Given Diltiazem HCl (Cardizem) 30 mg PO ONETIME ONE Stop: 02/08/17 15:31 Last Admin: 02/08/17 16:30 Dose: 30 mg Diphenhydramine HCl (Benadryl) 25 mg IVPUSH Q4H PRN PRN Reason: Itching Last Admin: 02/06/17 09:55 Dose: 25 mg Enoxaparin Sodium (Lovenox) 40 mg SUBCUT ONETIME ONE Stop: 02/04/17 10:01 Last Admin: 02/04/17 10:07 Dose: 40 mg Ephedrine Sulfate (Ephedrine Sulfate) Confirm Administered Dose 50 mg .ROUTE .STK-MED ONE Stop: 02/05/17 12:03 Fentanyl (Sublimaze) Confirm Administered Dose 100 mcg .ROUTE .STK-MED ONE Stop: 02/05/17 11:27 Fentanyl Citrate (Fentanyl In Ns 20 Mcg/Ml 30 Ml Pit Tanner) 0 mcg IV ASDIRECTED PRN; Protocol PRN Reason: Pain Last Admin: 02/04/17 09:27 Dose: 600 mcg Furosemide (Lasix) 20 mg IVPUSH STAT ONE Stop: 02/07/17 04:39 Last Admin: 02/07/17 04:47 Dose: 20 mg Furosemide (Lasix) Confirm Administered Dose 20 mg .ROUTE .STK-MED ONE Stop: 02/07/17 04:46 Last Admin: 02/07/17 05:02 Dose: Not Given Gentamicin Sulfate (Gentamicin) Confirm Administered Dose 240 mg .ROUTE .STK- MED ONE Stop: 02/05/17 13:01 Hydromorphone HCl (Dilaudid) 0.5 mg IM ONETIME ONE Stop: 02/03/17 23:34 Last Admin: 02/03/17 23:37 Dose: 0.5 mg Lactated Ringer's (Ringers, Lactated) 1,000 mls @ 125 mls/hr IV ASDIRECTED [facility] Last Admin: 02/06/17 12:09 Dose: 125 mls/hr Clindamycin Phosphate 900 mg/ (Sodium Chloride) 106 mls @ 200 mls/hr IV ONCALL ONE Stop: 02/05/17 11:31 Last Admin: 02/05/17 11:18 Dose: 200 mls/hr Lactated Ringer's (Ringers, Lactated) Confirm Administered Dose 1,000 mls @ as directed .ROUTE .STK-MED ONE Stop: 02/05/17 12:47 Sodium Chloride (Normal Saline) 500 mls @ 500 mls/hr IV .BOLUS ONE Stop: 02/07/17 14:48 Last Admin: 02/07/17 13:40 Dose: 500 mls/hr Sodium Chloride (Normal Saline) 70 mls @ 3 mls/sec IV ASDIRECTED [facility] Stop: 02/09/17 12:16 Last Admin: 02/08/17 12:27 Dose: 3 mls/sec Potassium Chloride 20 meq/Lidocaine HCl 2 ml/ Sodium Chloride 112 mls @ 50 mls/ hr IV Q2H [facility] Stop: 02/10/17 21:14 Last Admin: 02/10/17 22:52 Dose: 50 mls/hr Potassium Chloride (Kcl 20 Meq In Water 100 Ml) Confirm Administered Dose 200 mls @ as directed .ROUTE .STK-MED ONE Stop: 02/10/17 18:57 Last Admin: 02/10/17 19:33 Dose: 20 meq Ibuprofen (Motrin) 400 mg PO Q4H PRN PRN Reason: Pain/Fever Last Admin: 02/09/17 13:06 Dose: 400 mg Iopamidol (Isovue-300 (61%)) 98 ml IV . DIRECTED PRN PRN Reason: RADIOLOGY EXAM Stop: 02/09/17 12:12 Last Admin: 02/08/17 12:27 Dose: 98 ml Ketorolac Tromethamine (Toradol) 15 mg IVPUSH Q8H PRN PRN Reason: Pain Stop: 02/10/17 13:26 Last Admin: 02/05/17 15:18 Dose: 15 mg Lidocaine HCl (Xylocaine-Mpf 1%) Confirm Administered Dose 5 ml .ROUTE .STK-MED ONE Stop: 02/10/17 18:58 Last Admin: 02/10/17 19:32 Dose: 5 ml Lorazepam (Ativan) 0.5 mg IVPUSH ONETIME ONE Stop: 02/08/17 11:31 Last Admin: 02/08/17 12:12 Dose: 0.5 mg Midazolam HCl (Versed 1 Mg/Ml) Confirm Administered Dose 2 mg .ROUTE .STK-MED ONE Stop: 02/05/17 11:27 Morphine Sulfate (Morphine) 2 mg IVPUSH Q2H PRN PRN Reason: Pain Last Admin: 02/05/17 14:51 Dose: 2 mg Naloxone HCl (Narcan) 0.4 mg IVPUSH Q2M PRN PRN Reason: Respiratory Distress Ondansetron HCl (Zofran) 4 mg IVPUSH ONETIME ONE Stop: 02/04/17 03:23 Last Admin: 02/04/17 03:25 Dose: 4 mg Ondansetron HCl (Zofran) 4 mg IVPUSH ONETIME ONE Stop: 02/04/17 04:30 Last Admin: 02/04/17 04:34 Dose: 4 mg Ondansetron HCl (Zofran) 4 mg IV Q4H PRN PRN Reason: Nausea/Vomiting Last Admin: 02/04/17 09:26 Dose: 4 mg Ondansetron HCl (Zofran) 8 mg IVPUSH Q4H PRN PRN Reason: Nausea/Vomiting Last Admin: 02/08/17 09:30 Dose: 4 mg Oxycodone HCl (Oxycodone) 5 mg PO Q4H PRN PRN Reason: Pain (moderate 4-6) Oxycodone HCl (Oxycodone) 5 mg PO Q4H PRN PRN Reason: Pain Oxycodone/Acetaminophen (Percocet 325-5 Mg) 2 tab PO Q4H PRN PRN Reason: Pain Last Admin: 02/06/17 06:29 Dose: 2 tab Oxycodone/Acetaminophen (Percocet 325-5 Mg) 1 tab PO Q4H PRN PRN Reason: Pain Polyethylene Glycol (Miralax) 17 gm PO DAILY [facility] Last Admin: 02/06/17 12:10 Dose: Not Given Polyethylene Glycol (Miralax) 51 gm PO DAILY [facility] Last Admin: 02/11/17 09:53 Dose: 51 gm Potassium Chloride (Klor-Con M20) 40 meq PO ONETIME ONE Stop: 02/07/17 12:01 Last Admin: 02/07/17 13:31 Dose: 40 meq Povidone Iodine (Betadine 10% Soln) 1 ml TOP .STK-MED ONE Stop: 02/05/17 12:39 Last Admin: 02/05/17 12:38 Dose: 1 ml Povidone Iodine (Betadine 10% Soln) Confirm Administered Dose 1 ml .ROUTE .STK- MED ONE Stop: 02/05/17 13:01 Pravastatin Sodium (Pravachol) 10 mg PO BEDTIME [facility] Last Admin: 02/08/17 21:39 Dose: 10 mg Propofol (Diprivan 20 Ml) Confirm Administered Dose 200 mg .ROUTE .STK-MED ONE Stop: 02/05/17 11:26 Senna/Docusate Sodium (Senna Plus) 1 tab PO BID PRN PRN Reason: Constipation Last Admin: 02/05/17 20:50 Dose: 1 tab Senna/Docusate Sodium (Senna Plus) 1 tab PO BID [facility] Last Admin: 02/08/17 10:53 Dose: Not Given Sodium Chloride (Saline Flush) 10 ml FLUSH ONETIME PRN PRN Reason: per radiology protocol Stop: 02/09/17 12:12 Last Admin: 02/08/17 12:27 Dose: 10 ml Tramadol HCl (Ultram) 100 mg PO Q6H PRN PRN Reason: Pain Tramadol HCl (Ultram) 50 mg PO Q6H PRN PRN Reason: Pain (moderate 4-6) Last Admin: 02/08/17 21:40 Dose: 50 mg Zolpidem Tartrate (Ambien) 5 mg PO BEDTIME PRN PRN Reason: Sleep - Exam Quality Assessment: DVT Prophylaxis General: Alert, Oriented, Cooperative, No Acute Distress Lungs: Clear to Auscultation, Normal Respiratory Effort Cardiovascular: Regular Rate, Regular Rhythm, No Murmurs GI/Abdominal Exam: Normal Bowel Sounds, Soft, Non-Tender Extremities: No Pedal Edema Skin: Warm, Dry, Intact - Problem List Review Problem List Initiated/Reviewed/Updated: Yes - Plan Plan:: ASSESSMENT AND PLAN RIGHT HIP FRACTURE - fracture secondary to accidental injury. Surgical intervention with hemiarthroplasty completed 02/05. Postop course complicated by oversedation and volume overload and now abdominal pain. Physical therapy has been limited because of medical issues. Patient has had significant clinical improvement over the past 3 days after narcotic medications were discontinued. -Pain control with acetaminophen and ibuprofen -postop cares per surgical team -twice a day aspirin for DVT prophylaxis -Weightbearing as tolerated -Physical therapy and occupational therapy Persistent nausea and dizziness - pain resolved and nausea has essentially resolved as well. I suspect this was all related to narcotics. -Pain control -Nausea control -Advance diet Paroxysmal atrial fibrillation with rapid ventricular response - 2 episodes, probably both related to mild volume overload. Both have resolved after single dose of diltiazem. -Supplement oxygen as needed CHRONIC CONSTIPATION - has been tending to be closer to diarrhea rather than constipation. -Continue outpatient medical regimen MAINTENANCE ISSUES -DVT prophylaxis; SCUDs and twice daily aspirin -GI prophylaxis; not indicated -Valles catheter; removed 02/07 -Nutrition; regular diet DISPOSITION - anticipate discharge to long term in [place] tomorrow
--- NOTE | 2017-02-12 16:11 | PCM.DCSUM1 ---
Discharge Summary - Hospital Course Brief History: Ms. Rogers is an 81-year-old woman who was admitted through the emergency department with a right hip fracture. - Discharge Data Discharge Date: 02/13/17 Discharge Disposition: DC/Tfer to SNF 03 Condition: Fair - Discharge Diagnosis/Problem(s) (1) Fracture of femoral neck, right, closed SNOMED Code(s): 007101792 ICD Code: S72.001A - FRACTURE OF UNSP PART OF NECK OF RIGHT FEMUR, INIT Status: Acute Current Visit: Yes (2) Medication intolerance SNOMED Code(s): 04257949 ICD Code: Z78.9 - OTHER SPECIFIED HEALTH STATUS Status: Acute Current Visit: Yes (3) Paroxysmal atrial fibrillation with RVR SNOMED Code(s): 640949575, 053748094037312 ICD Code: I48.0 - PAROXYSMAL ATRIAL FIBRILLATION Status: Acute Current Visit: Yes (4) Volume overload SNOMED Code(s): 09913081 ICD Code: E87.70 - FLUID OVERLOAD, UNSPECIFIED Status: Acute Current Visit: Yes - Patient Summary/Data Consults: Consultations 02/05/17 07:46 Consult to Physician [CONS] Routine Consulting Provider: Vignesh Oliva Call Completed to Consulting Physician: Yes Reason for Consult: Right hip fracture 02/05/17 13:26 OT Evaluation and Treatment [CONS] Routine Please Evaluate and Treat. OT Reason for Consult: Strengthening This query below is only for informational purposes and is not editable. Admission Diagnosis/Problem: Closed fracture of neck of femur PT Evaluation and Treatment [CONS] Routine Please Evaluate and Treat. PT Reason for Consult: Strengthening This query below is only for informational purposes and is not editable. Admission Diagnosis/Problem: Closed fracture of neck of femur Hospital Course: Ms. Rogers is an 81-year-old woman who is visiting the [place] area from her home in [facility]. She unfortunately fell in one of the local grocery store parking lots shortly after arriving here. She was brought into the emergency department for further evaluation, x-ray and CT scan confirmed a right femoral neck fracture. She was admitted to the hospital and the following day was seen and evaluated by Dr. Myles Oliva, later that day the fracture was surgically repaired with a right hip hemiarthroplasty. She initially did well during the surgery but then developed some fluid overload with shortness of breath and transient atrial fibrillation with rapid ventricular response. She was given IV diuretic therapy and one dose of diltiazem and then converted spontaneously to sinus rhythm. She had one other episode of fluid overload and recurrent A. fib with RVR that was managed in a similar way. She showed a significant intolerance to narcotics with marked lethargy dizziness and nausea. These symptoms gradually resolved after all narcotics were held and her pain was managed with ibuprofen and acetaminophen. 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 CT scan of the head was also obtained and showed no acute or significant abnormalities. After narcotics were held she gradually improved and by the time of discharge was tolerating a regular diet with no further nausea. Overall strength improved and prior to discharge she was walking with use of walker. Activity will be as tolerated and she will resume her usual diet. Follow-up appointment should be scheduled with orthopedics in [place] in one week for review of the surgical repair and staple removal. She will be discharged to skilled care nursing facility and will receive daily physical therapy as well as occupational therapy. - Patient Instructions Diet: Usual Diet as Tolerated Activity: As Tolerated Other/Special Instructions: Daily physical therapy and occupational therapy [facility]. Will up with primary care provider as needed. - Discharge Plan Prescriptions/Med Rec: Aspirin [Ecotrin] 325 mg PO BID #60 tab.ec Home Medications: Home Meds ALPRAZolam [Alprazolam] 0.25 mg PO BID PRN 02/03/17 [History] Calcium Carbonate/Vitamin D3 [Calcium 500 + Vit D 400] 1 each PO BID 02/03/17 [ History] Gabapentin 100 mg PO BID 02/03/17 [History] Losartan [Cozaar] 50 mg PO DAILY 02/03/17 [History] Pravastatin [Pravachol] 10 mg PO BEDTIME 02/03/17 [History] Triamcinolone Acetonide [Triamcinolone Acetonide 0.1% Crm] 1 applic TOP BID PRN 02/03/17 [History] Polyethylene Glycol 3350 [Miralax] 3 scoop PO DAILY 02/04/17 [History] Psyllium with Sucrose [Metamucil] 1 each PO DAILY 02/04/17 [History] Aspirin [Ecotrin] 325 mg PO BID #60 tab.ec 02/08/17 [Rx] Referrals: PCP,None [Primary Care Provider] - - Patient Data Vitals - Most Recent: Last Vital Signs Temp 97.6 F 02/12/17 15:16 Pulse 87 02/12/17 15:16 Resp 17 02/12/17 15:16 BP 113/65 02/12/17 15:16 Pulse Ox 95 02/12/17 15:16 Weight - Most Recent: 143 lb I&O - Last 24 hours: Intake & Output 02/12/17 02/12/17 02/12/17 06:59 14:59 22:59 Intake Total 200 1300 237 Output Total 1050 450 Balance -850 850 237 Med Orders - Current: Current Medications Acetaminophen (Tylenol) 650 mg PO Q4H PRN PRN Reason: Pain/Fever Last Admin: 02/12/17 00:00 Dose: 650 mg Al Hydroxide/Mg Hydroxide (Mag-Al Plus) 30 ml PO Q4H PRN PRN Reason: Constipation Albuterol (Proventil Neb Soln) 2.5 mg NEB Q4H PRN PRN Reason: Shortness Of Breath/wheezing Aspirin (Ecotrin) 325 mg PO BID [facility] Last Admin: 02/12/17 08:04 Dose: 325 mg Bisacodyl (Dulcolax) 10 mg PO DAILY PRN PRN Reason: Constipation Last Admin: 02/06/17 06:29 Dose: 10 mg Docusate Sodium (Colace) 100 mg PO BID PRN PRN Reason: Constipation Gabapentin (Neurontin) 100 mg PO BID [facility] Last Admin: 02/12/17 08:03 Dose: 100 mg Losartan Potassium (Cozaar) 50 mg PO DAILY [facility] Last Admin: 02/12/17 08:04 Dose: 50 mg Magnesium Hydroxide (Milk Of Magnesia) 30 ml PO Q12H PRN PRN Reason: Constipation Ondansetron HCl (Zofran) 4 mg IVPUSH Q6H PRN PRN Reason: Nausea/Vomiting Last Admin: 02/10/17 16:42 Dose: 2 mg Polyethylene Glycol (Miralax) 51 gm PO DAILY PRN PRN Reason: Constipation Psyllium Husk (Metamucil Sugar Free) 1 packet PO DAILY [facility] Last Admin: 02/12/17 08:13 Dose: Not Given Sodium Chloride (Saline Flush) 10 ml FLUSH ASDIRECTED PRN PRN Reason: Keep Vein Open Discontinued Medications Acetaminophen (Tylenol) 650 mg PO Q4H PRN PRN Reason: Pain (Mild 1-3)/fever Last Admin: 02/04/17 09:26 Dose: 650 mg Alprazolam (Xanax) 0.25 mg PO BID PRN PRN Reason: Anxiety Aspirin (Halfprin) 81 mg PO DAILY [facility] Last Admin: 02/05/17 09:53 Dose: Not Given Bupivacaine HCl/Epinephrine Bitart (Marcaine 0.5%/Epinephrine 1:200,000) Confirm Administered Dose 50 ml .ROUTE .STK-MED ONE Stop: 02/05/17 13:01 Bupivacaine HCl/Epinephrine Bitart (Marcaine 0.5%/Epinephrine 1:200,000) 30 ml INJECT .STK-MED ONE Stop: 02/05/17 12:39 Last Admin: 02/05/17 12:38 Dose: 30 ml Diazepam (Valium) 5 mg IVPUSH Q6H PRN PRN Reason: Spasms Diltiazem HCl (Cardizem) 30 mg PO STAT ONE Stop: 02/07/17 04:39 Last Admin: 02/07/17 04:47 Dose: 30 mg Diltiazem HCl (Cardizem) Confirm Administered Dose 30 mg .ROUTE .STK-MED ONE Stop: 02/07/17 04:46 Last Admin: 02/07/17 05:01 Dose: Not Given Diltiazem HCl (Cardizem) 30 mg PO ONETIME ONE Stop: 02/08/17 15:31 Last Admin: 02/08/17 16:30 Dose: 30 mg Diphenhydramine HCl (Benadryl) 25 mg IVPUSH Q4H PRN PRN Reason: Itching Last Admin: 02/06/17 09:55 Dose: 25 mg Enoxaparin Sodium (Lovenox) 40 mg SUBCUT ONETIME ONE Stop: 02/04/17 10:01 Last Admin: 02/04/17 10:07 Dose: 40 mg Ephedrine Sulfate (Ephedrine Sulfate) Confirm Administered Dose 50 mg .ROUTE .STK-MED ONE Stop: 02/05/17 12:03 Fentanyl (Sublimaze) Confirm Administered Dose 100 mcg .ROUTE .STK-MED ONE Stop: 02/05/17 11:27 Fentanyl Citrate (Fentanyl In Ns 20 Mcg/Ml 30 Ml [employer]) 0 mcg IV ASDIRECTED PRN; Protocol PRN Reason: Pain Last Admin: 02/04/17 09:27 Dose: 600 mcg Furosemide (Lasix) 20 mg IVPUSH STAT ONE Stop: 02/07/17 04:39 Last Admin: 02/07/17 04:47 Dose: 20 mg Furosemide (Lasix) Confirm Administered Dose 20 mg .ROUTE .STK-MED ONE Stop: 02/07/17 04:46 Last Admin: 02/07/17 05:02 Dose: Not Given Gentamicin Sulfate (Gentamicin) Confirm Administered Dose 240 mg .ROUTE .STK- MED ONE Stop: 02/05/17 13:01 Hydromorphone HCl (Dilaudid) 0.5 mg IM ONETIME ONE Stop: 02/03/17 23:34 Last Admin: 02/03/17 23:37 Dose: 0.5 mg Lactated Ringer's (Ringers, Lactated) 1,000 mls @ 125 mls/hr IV ASDIRECTED [facility] Last Admin: 02/06/17 12:09 Dose: 125 mls/hr Clindamycin Phosphate 900 mg/ (Sodium Chloride) 106 mls @ 200 mls/hr IV ONCALL ONE Stop: 02/05/17 11:31 Last Admin: 02/05/17 11:18 Dose: 200 mls/hr Lactated Ringer's (Ringers, Lactated) Confirm Administered Dose 1,000 mls @ as directed .ROUTE .STK-MED ONE Stop: 02/05/17 12:47 Sodium Chloride (Normal Saline) 500 mls @ 500 mls/hr IV .BOLUS ONE Stop: 02/07/17 14:48 Last Admin: 02/07/17 13:40 Dose: 500 mls/hr Sodium Chloride (Normal Saline) 70 mls @ 3 mls/sec IV ASDIRECTED [facility] Stop: 02/09/17 12:16 Last Admin: 02/08/17 12:27 Dose: 3 mls/sec Potassium Chloride 20 meq/Lidocaine HCl 2 ml/ Sodium Chloride 112 mls @ 50 mls/ hr IV Q2H [facility] Stop: 02/10/17 21:14 Last Admin: 02/10/17 22:52 Dose: 50 mls/hr Potassium Chloride (Kcl 20 Meq In Water 100 Ml) Confirm Administered Dose 200 mls @ as directed .ROUTE .STK-MED ONE Stop: 02/10/17 18:57 Last Admin: 02/10/17 19:33 Dose: 20 meq Ibuprofen (Motrin) 400 mg PO Q4H PRN PRN Reason: Pain/Fever Last Admin: 02/09/17 13:06 Dose: 400 mg Iopamidol (Isovue-300 (61%)) 98 ml IV . DIRECTED PRN PRN Reason: RADIOLOGY EXAM Stop: 02/09/17 12:12 Last Admin: 02/08/17 12:27 Dose: 98 ml Ketorolac Tromethamine (Toradol) 15 mg IVPUSH Q8H PRN PRN Reason: Pain Stop: 02/10/17 13:26 Last Admin: 02/05/17 15:18 Dose: 15 mg Lidocaine HCl (Xylocaine-Mpf 1%) Confirm Administered Dose 5 ml .ROUTE .STK-MED ONE Stop: 02/10/17 18:58 Last Admin: 02/10/17 19:32 Dose: 5 ml Lorazepam (Ativan) 0.5 mg IVPUSH ONETIME ONE Stop: 02/08/17 11:31 Last Admin: 02/08/17 12:12 Dose: 0.5 mg Midazolam HCl (Versed 1 Mg/Ml) Confirm Administered Dose 2 mg .ROUTE .STK-MED ONE Stop: 02/05/17 11:27 Morphine Sulfate (Morphine) 2 mg IVPUSH Q2H PRN PRN Reason: Pain Last Admin: 02/05/17 14:51 Dose: 2 mg Naloxone HCl (Narcan) 0.4 mg IVPUSH Q2M PRN PRN Reason: Respiratory Distress Ondansetron HCl (Zofran) 4 mg IVPUSH ONETIME ONE Stop: 02/04/17 03:23 Last Admin: 02/04/17 03:25 Dose: 4 mg Ondansetron HCl (Zofran) 4 mg IVPUSH ONETIME ONE Stop: 02/04/17 04:30 Last Admin: 02/04/17 04:34 Dose: 4 mg Ondansetron HCl (Zofran) 4 mg IV Q4H PRN PRN Reason: Nausea/Vomiting Last Admin: 02/04/17 09:26 Dose: 4 mg Ondansetron HCl (Zofran) 8 mg IVPUSH Q4H PRN PRN Reason: Nausea/Vomiting Last Admin: 02/08/17 09:30 Dose: 4 mg Oxycodone HCl (Oxycodone) 5 mg PO Q4H PRN PRN Reason: Pain (moderate 4-6) Oxycodone HCl (Oxycodone) 5 mg PO Q4H PRN PRN Reason: Pain Oxycodone/Acetaminophen (Percocet 325-5 Mg) 2 tab PO Q4H PRN PRN Reason: Pain Last Admin: 02/06/17 06:29 Dose: 2 tab Oxycodone/Acetaminophen (Percocet 325-5 Mg) 1 tab PO Q4H PRN PRN Reason: Pain Polyethylene Glycol (Miralax) 17 gm PO DAILY [facility] Last Admin: 02/06/17 12:10 Dose: Not Given Polyethylene Glycol (Miralax) 51 gm PO DAILY [facility] Last Admin: 02/11/17 09:53 Dose: 51 gm Potassium Chloride (Klor-Con M20) 40 meq PO ONETIME ONE Stop: 02/07/17 12:01 Last Admin: 02/07/17 13:31 Dose: 40 meq Povidone Iodine (Betadine 10% Soln) 1 ml TOP .STK-MED ONE Stop: 02/05/17 12:39 Last Admin: 02/05/17 12:38 Dose: 1 ml Povidone Iodine (Betadine 10% Soln) Confirm Administered Dose 1 ml .ROUTE .STK- MED ONE Stop: 02/05/17 13:01 Pravastatin Sodium (Pravachol) 10 mg PO BEDTIME [facility] Last Admin: 02/08/17 21:39 Dose: 10 mg Propofol (Diprivan 20 Ml) Confirm Administered Dose 200 mg .ROUTE .STK-MED ONE Stop: 02/05/17 11:26 Senna/Docusate Sodium (Senna Plus) 1 tab PO BID PRN PRN Reason: Constipation Last Admin: 02/05/17 20:50 Dose: 1 tab Senna/Docusate Sodium (Senna Plus) 1 tab PO BID [facility] Last Admin: 02/08/17 10:53 Dose: Not Given Sodium Chloride (Saline Flush) 10 ml FLUSH ONETIME PRN PRN Reason: per radiology protocol Stop: 02/09/17 12:12 Last Admin: 02/08/17 12:27 Dose: 10 ml Tramadol HCl (Ultram) 100 mg PO Q6H PRN PRN Reason: Pain Tramadol HCl (Ultram) 50 mg PO Q6H PRN PRN Reason: Pain (moderate 4-6) Last Admin: 02/08/17 21:40 Dose: 50 mg Zolpidem Tartrate (Ambien) 5 mg PO BEDTIME PRN PRN Reason: Sleep *Q Meaningful Use (DIS) - VTE *Q VTE Criteria *Q: VTE Pharmacological Contraindications *Q: Patient Scheduled Surgery - Stroke *Q Stroke Criteria *Q: - AMI *Q AMI Criteria *Q:
[2017-02-13] MEDS: Acetaminophen 325 MG Tab PO PRN (06:01)
[2017-02-13 06:27] VITALS: BP 107/69
== END 2017-02-13 06:31 | DRG 470 ==
LOC: JP.ED 20:46 → JP.MS 02-04 07:40 → JP.ED 02-04 08:15
PROVIDERS: ADMIT Hospitalist; ATTEND Hospitalist
PROC: 0SRR0JZ Replacement of Right Hip Joint, Femoral Surface with Synthetic Substitute, Open Approach (ICD-10-PCS; principal; 2017-02-05)
DX: S72.011A Unspecified intracapsular fracture of right femur, initial encounter for closed fracture (principal); I10 Essential (primary) hypertension; W01.0XXA Fall on same level from slipping, tripping and stumbling without subsequent striking against object, initial encounter; Y92.512 Supermarket, store or market as the place of occurrence of the external cause; K59.09 Other constipation; Z85.828 Personal history of other malignant neoplasm of skin; Z86.79 Personal history of other diseases of the circulatory system; Z79.82 Long term (current) use of aspirin; Z88.0 Allergy status to penicillin; E87.70 Fluid overload, unspecified; I48.0 Paroxysmal atrial fibrillation; R42 Dizziness and giddiness; R11.0 Nausea; R10.9 Unspecified abdominal pain; R10.33 Periumbilical pain; T40.605A Adverse effect of unspecified narcotics, initial encounter; Y92.230 Patient room in hospital as the place of occurrence of the external cause
CPT/HCPCS: 36415; 51702; 71010 ×2; 73502 ×2; 73552 ×2; 73562 ×2; 73700; 80053; 81001; 85025; 93005; 93010; 96372; 96374; 96376; 99284; 99285; J1170; J2405 ×2; 70450; 72170; 72170-26; 74177; 74177-26; 80048; 85018; 85027; 94762; 97110-GP; 97112-GP; 97116-GP; 97140-GP; 97162-GP; 97165-GO; 97530-GP; 97535-GP; A9270-GY; C1776; J1200; J1580; J1650; J1885; J1940; J2060; J2250; J2270; J2704; J3010; J3480; J7030; J7040; J7050; J7120; Q9967; S0077